=== PATIENT | female | born 1970 | race Caucasian/White ===

== ENCOUNTER → 2023-01-21 06:20 | Outpatient (CLI) | payer MEDICAID, SELFPAY ==
--- NOTE | 2023-01-21 06:21 | US_ITS ---
FINAL REPORT CLINICAL HISTORY: claudication, smoker, weakened pulses > lt DPA/BANK PRESIDENT FINDINGS: ANKLE/BRACHIAL INDICES FINDINGS: Pressure indices are as follows: RIGHT LOWER EXTREMITY: Ankle brachial pressure index: 0.88 Comments: Borderline LEFT LOWER EXTREMITY: Ankle brachial pressure index: 0.55 Comments: Moderate IMPRESSION: Moderate peripheral vascular disease of the left lower extremity. Reviewed, Interpreted and Dictated by Pola Del Cid III, MD Transcribed by Roger Simms Authenticated and [facility]
--- NOTE | 2023-01-21 06:21 | CA_ITS ---
APPROVED REPORT Exam: Pharmacologic Technologist: Kirti Alaniz, Ht: 5 ft 7 in Wt: 169 lbs BSA: 1.88 m2 HR: 59 bpm BP: 130/75 mmHg Rhythm: NSR, NS ST-T Abns Medical History Medications: Levothyroxine,,,,, Atenolol,,,,, Simvastatin,,,,, Cardiac Risk Factors: Hyperlipidemia, Smoking Stress Test Details Test: LEXISCAN HR Resting HR: 64 bpm Max Heart Rate (APMHR): 166 bpm Max HR Achieved: 97 bpm Target HR (85% APMHR): 141 bpm % of APMHR: 58 Recovery HR: 91 bpm BP Resting BP: 130/75 mmHg Max BP: 160/80 mmHg Recovery BP: 142.0/83.0 mmHg ECG Resting ECG: NSR, No ST_changes at basline Stress ECG: No change Recovery ECG: No change Clinical Exercise duration: 04:00 min Highest Stage Achieved: Exercise capacity: 1.0 METs Stress ECG Conclusion Pt switched to lexiscan due to leg pain and blunted HR response as she had received atenolol prior to the procedure Pt experinced SOA and head discomfort. No CP noted. No arrhythmias noted. No ST changes with stress. Unremarkable lexiscan stress. Myoview images reported separately. Test Summary REST . . . . . . . Sitting REST 01:34 . . 64 . 130/ 75 . . Stage 1 01:00 . . 85 . . . . Stage 2 01:00 . . 94 . . . . Stage 3 01:00 . . 96 . 158/ 83 . . Stage 4 01:00 . . 89 . 132/ 74 . Stop exercise at 04:00 RECOVERY 01:00 . . 91 . . . . RECOVERY 02:00 . . 85 . 142/ 83 . . RECOVERY 03:00 . . 86 . 150/ 75 . . RECOVERY 03:14 . . 89 . 150/ 75 . . Electronically signed by : Allie Batista, 01/21/2023 17:33:49
--- NOTE | 2023-01-21 06:21 | NM_ITS ---
APPROVED REPORT Exam: Nuclear Stress Test Indication: HYPERLIPIDEMIA, TOB USE, FM HX, C.P., SOB, SYNCOPE, FATIGUE, CLAUDICATION Patient Location: Outpatient Stress Tech: Kirti Alaniz NM Tech:Juana Ceron SARKIS RT (R)(N)(M) Ht: 5 ft 7 in Wt: 167 lbs Bra Size: B HR: 64 bpm BP: 130/75 mmHg BSA: 1.87 m2 TID: 1.22 BMI: 26.1 History: HYPERLIPIDEMIA, TOB USE, FM HX, C.P., SOB, SYNCOPE, FATIGUE, CLAUDICATION Procedure: Patient received 0.4 mg of intravenous Lexiscan, resting heart rate 64 bpm, resting blood pressure 130/75 mmHg, with Lexiscan maximum heart rate achieved was 97 bpm which is 58 % of the maximum predicted heart rate and blood pressure was 160/80 mmHg. With Lexiscan, patient denied any complaint of chest pain. Cardiac Stress and Resting SPECT Images: Cardiac Stress and Resting SPECT images were obtained using technetium 99m Myoview 30.8 mCi stress and 10.49 mCi at rest. Resting and stress imaging demonstrates a medium-sized, moderate, predominantly reversible perfusion defect in the mid to basal septal and anteroseptal LV wall, suggestive of reversible ischemia. There is a fixed perfusion defect inferiorly that is no longer visualized in prone stress imaging, suggestive of diaphragmatic attenuation. There is borderline incease in transient ischemic dilatation ratio (TID=1.22) that may be suggestive of possible balanced ischemia or multivessel disease. Gated imaging demonstrates a normal global LV systolic function. There is mild hypokinesis present in the mid to basal septal LV region. The LVEF is calculated at 68% Conclusion: Diaphragmatic attenuation is present. Medium-sized, moderate, predominantly reversible perfusion defect in the mid to basal septal and anteroseptal LV wall, suggestive of reversible ischemia. Borderline incease in transient ischemic dilatation ratio (TID=1.22) that may be suggestive of possible balanced ischemia or multivessel disease. Normal global LV systolic function with mild hypokinesis present in the mid to basal septal LV region. The LVEF is calculated at 68% Electronically signed by : Allie Batista, 01/21/2023 17:58:02
== END ==
PROVIDERS: PCP Nurse Practitioner Family; Visit Provider Nurse Practitioner
DX: R06.09 Other forms of dyspnea (principal); R07.9 Chest pain, unspecified; R00.2 Palpitations; R42 Dizziness and giddiness; R55 Syncope and collapse; I45.10 Unspecified right bundle-branch block; I73.9 Peripheral vascular disease, unspecified; F17.200 Nicotine dependence, unspecified, uncomplicated; R94.31 Abnormal electrocardiogram [ECG] [EKG]
CPT/HCPCS: 78452; 93017; 93306; 93923; A9502; J2785

== ENCOUNTER 2023-02-05 14:32 | Observation (INO) | payer MEDICAID, SELFPAY ==
[2023-02-05] VITALS (21 sets, daily range): BP systolic 96–148; BP diastolic 57–105; PULSE 54–74; RESP 16–97; TEMP 36.7–36.9; O2SAT 16–100; BMI 26.3; BMI 26.0
--- NOTE | 2023-02-05 07:03 | IR_ITS ---
APPROVED REPORT Patient Location: Outpatient PROCEDURES Selective coronary angiogram Intravascular ultrasound to the left main artery and LAD Drug-eluting stent deployment to the circumflex arteries first obtuse marginal artery Drug-eluting stent deployment to the left main artery extending into the proximal LAD Drug-eluting stent deployment to the mid LAD which was noncontiguous with the proximal LAD INDICATION High risk abnormal Myoview, Angina pectoris, Coronary artery disease, Polymorphic ventricular tachycardia Informed consent was obtained prior to the procedure. COMPLICATIONS None Estimated Blood Loss: Less than 10 mls TECHNIQUE One percent lidocaine used to anesthetize the right anterior aspect of the wrist. The right radial artery was accessed via the Seldinger technique. A 6 Portuguese sheath was placed in the right radial artery. 150 mg magnesium sulfate, 800 mcg of nitroglycerin, 1mg Lidocaine and 5000 U Heparin were given through the arterial sheath. The papa catheter was also used to perform selective coronary angiography. Upon engagement left main artery there is severe dampening which resulted in polymorphic ventricular tachycardia. Just prior to the patient being electrically cardioverted with a defibrillator she spontaneously converted back into sinus rhythm. Therapeutic heparin was administered giving a therapeutic ACT and a Choice PT extra-support wire was placed into the LAD. Intravascular ultrasound probe was advanced which demonstrated an MLA of 3.2 mm??? in the ostial proximal LAD with an MLA of 4 mm??? in the left main artery. At this point the wire was left in the LAD and an additional wire was placed in the circumflex artery where a 2.75 x 38 mm Mario frontier stent was deployed in the proximal mid to distal portion of the obtuse marginal artery and deployed at 14 kandice. Excellent angiographic results were obtained with reduction of the severe stenosis to less than 10%. Following this a 3.5 x 18 mm Mario frontier stent was deployed in the mid left main artery extending the proximal LAD and deployed at 20 kandice. A 4 mm x 12 mm balloon was then deployed in the proximal LAD extending back into the left main artery at 20 kandice. Intravascular ultrasound probe demonstrated there was plaque proximal to the left main stent and the stent was slightly undersized. A 2.75 x 18 mm Hercules frontier stent was placed in the mid LAD at 20 kandice reducing the severe stenosis to 0%. Following this a 4 mm x 8 mm Mario frontier stent was placed in the ostial segment of the left main artery deployed at 24 kandice. Excellent angiographic results were obtained with JOSELITO-3 flow down the left main artery LAD circumflex artery and first obtuse marginal artery. Intravascular ultrasound probe was reinserted which demonstrated wide patency. Intra-arterial nitroglycerin was also injected. At the end of the procedure the apparatus was removed the sheath was removed and hemostasis was achieved using TR banding patient was transferred to postop already in stable addition ANGIOGRAPHIC RESULTS The left main artery And is severe mid to distal stenosis in excess of 70% by IVUS The left anterior descending artery Had a critical ostial proximal stenosis and excessive 90% by IVUS followed by additional 40% proximal stenoses followed by a focal mid vessel 80 to 90% stenosis The circumflex artery Is a dominant vessel and has a 50 to 60% stenosis in a large first obtuse marginal artery The right coronary artery Nondominant with mild 10% luminal irregularities The INFANTE ventriculogram reveals Not performed The left ventricular end-diastolic pressure Not measured IMPRESSION Severe left main disease which extended into the ostial pr
[2023-02-05 10:31] LABS: Basophils # 0.1 K/mm3 (0-0.2); Basophils % 0.6 % (0.1-2.0); Eosinophils # 0.4 K/mm3 (0.0-0.4); Eosinophils % 2.7 % (0.1-12.0); Hematocrit 44.8 % (37.0-47.0); Hemoglobin 14.9 g/dL (12.2-16.2); Lymphocytes # 4.2 K/mm3 (0.7-4.5); Lymphocytes % 28.6 % (10-50); Mean Corpuscular HGB Conc 33.3 g/dL (31.8-35.4); Mean Corpuscular Hemoglobin 28.9 pg (27.0-31.2); Mean Corpuscular Volume 86.9 fl (81-99); Mean Platelet Volume 7.9 fl (7.4-10.4); Monocytes # 0.6 K/mm3 (0.1-1.0); Monocytes % 3.8 % (1.7-9.3); Neutrophils # 9.5 K/mm3 (1.8-7.8); Neutrophils % 64.3 % (37.0-80.0); Platelet Count 270 K/mm3 (142-424); Red Blood Count 5.15 M/mm3 (4.20-5.40); Red Cell Distribution Width 12.7 % (11.5-17.5); White Blood Count 14.7 K/mm3 (4.8-10.8)
[2023-02-05 10:37] LABS: Chloride 104 mmol/L (98-107); Potassium 4.7 mmoL/L (3.5-5.1); Sodium 139 mmol/L (136-145)
[2023-02-05 10:40] LABS: Anion Gap 15.7 mEq/L (5-15); Blood Urea Nitrogen 13 mg/dl (7-17); Calcium 9.9 mg/dl (8.4-10.2); Carbon Dioxide 24 mmol/L (22.0-30.0); Creatinine Clearance Estimated 111 mL/min (50-200); Estimated Glomerular Filt Rate 87 ml/min (>60); GFR (African American) 106 ML/MIN (>60); Glucose 85 mg/dl (74-100)
[2023-02-05 15:24] LABS: CATHL Activated Clotting Time > 400 SEC (74-125)
[2023-02-05 15:25] LABS: CATHL Activated Clotting Time 359 SEC (74-125)
[2023-02-05 15:34] LABS: Thyroid Stimulating Hormone 2.22 uIU/mL (0.465-4.68)
[2023-02-05 16:46] LABS: Coronavirus 19, PCR Not Detected (NotDetected); Influenza A, PCR Not Detected (NotDetected); Influenza B, PCR Not Detected (NotDetected)
--- NOTE | 2023-02-05 18:22 | PC.NURSE ---
pt has not had any complaints of chest pain or SOA, tracelet removed, dressing placed, remains C/D/I, ambulated to BR with SB assist, HR 54-61, SBP 126-148
--- NOTE | 2023-02-05 18:50 | EXP.HP ---
History of Present Illness *Admission Date: 02/05/23 *Reason for visit:: Vfib, s/p left heart cath *History of present illness: 52-year-old female with CAD, tobacco use history, hypertension and hyperlipidemia. She presented for an elective outpatient left heart cath today after an abnormal Myoview stress test on 01/21 identified reversible ischemic changes in the anterior wall and septum. Left heart cath performed identifying multiple critical lesions. Intervened on with placement of 4 stents today. Stents placed to the left main ostium, LAD, obtuse marginal. Tolerated procedure well but had an episode of V-fib that self converted during the heart cath. Cardiology request admission overnight for monitoring on telemetry. Medicine agrees with admission. Patient denies any chest pain just feels sensation of her stomach dropping at times and feels anxious or nervous about her health. Denies any shortness of breath. Is also been having claudication in her legs and has abnormal ABIs. Plan for lower extremity runoff in the coming weeks. At this time is chest pain-free and stable on room air. [facility] Disclaimer: The information contained in this section may have been updated after the patient was seen, as this information can be updated by other users. Medical History Abnormal ankle brachial index Abnormal result of cardiovascular function study Claudication Family History No significant family history Social History Smoking Status: Current every day smoker tobacco type: cigarettes packs per day: 1 alcohol intake: never substance use type: denies use current occupational status: employed Travel in the last 8 weeks: Inside the [place] Review of Systems Review of Systems Review of systems (narrative): 14 point review of systems performed, pertinent positives and negatives as per HPI Meds Home Medications and Allergies Home Medications Medication Instructions Recorded Confirmed Type levothyroxine 25 mcg tablet 25 mcg PO DAILY hypothyroidism 12/23/22 02/05/23 History simvastatin 5 mg tablet 5 mg PO DAILY High cholesterol 12/23/22 02/05/23 History aspirin 81 mg tablet,delayed 81 mg PO DAILY Blood thinner 02/05/23 02/05/23 History release (Adult Low Dose Aspirin) atenolol 50 mg tablet 50 mg PO DAILY High blood pressure 02/05/23 02/05/23 History ticagrelor 90 mg tablet (Brilinta) 90 mg PO Q12H #180 tabs 02/05/23 Rx New Prescriptions to Start Prescriptions: ticagrelor [Brilinta] Marcel Bhandari Allergies Allergy/AdvReac Type Severity Reaction Status Date / Time No Known Allergies Allergy Verified 01/28/23 13:59 Exam Data for Last 24 hours Vital signs and Labs for Last 24 Hours: Temp Pulse Resp BP Pulse Ox 98.3 F 54 L 18 148/75 H 98 02/05/23 15:15 02/05/23 17:15 02/05/23 17:15 02/05/23 17:15 02/05/23 17:15 Laboratory Results - last 24 hr 02/05/23 10:00: WBC 14.7 H, RBC 5.15, Hgb 14.9, Hct 44.8, MCV 86.9, MCH 28.9, MCHC 33.3, RDW 12.7, Plt Count 270, MPV 7.9, Neut % (Auto) 64.3, Lymph % (Auto) 28.6, [place] % (Auto) 3.8, Eos % (Auto) 2.7, Baso % (Auto) 0.6, Neut # (Auto) 9.5 H, Lymph # (Auto) 4.2, [place] # (Auto) 0.6, Eos # (Auto) 0.4, Baso # (Auto) 0.1 02/05/23 10:00: Sodium 139, Potassium 4.7, Chloride 104, Carbon Dioxide 24, Anion Gap 15.7 H, BUN 13, Creatinine 0.70, Estimated Creat Clear 111, Estimated GFR 87, Est GFR ( Amer) 106, Glucose 85, Calcium 9.9 02/05/23 10:00: TSH 2.22 02/05/23 13:04: Activated Clotting Time > 400 H* 02/05/23 13:34: Activated Clotting Time 359 H* 02/05/23 16:33: SARS-CoV-2 (PCR) Not detected, Influenza A Untype (PCR) Not detected, Influenza Type B (PCR) Not detected I & O for Last 24 hours: Intake & Output 02/02/23 02/03/23 02/04/23 02/05/23 23:59 23:59 23:59 23:59 Intake
[2023-02-06] VITALS: PULSE 58
--- NOTE | 2023-02-06 03:19 | PC.NURSE ---
PATIENT HAS RESTED WELL. DENIES PAIN/SOA/DISCOMFORT. SINUS ANNA MARIE ON TELEMETRY. DRSG TO RIGHT WRIST C/D/I. NPO AFTER MN ORDERED FOR F/U WITH CARDIOLOGY.
[2023-02-06 04:00] VITALS: BP 125/69; PULSE 66; PULSE 75; RESP 18; TEMP 36.6; O2SAT 96; BMI 26.9
[2023-02-06 06:44] LABS: Basophils # 0.1 K/mm3 (0-0.2); Basophils % 0.7 % (0.1-2.0); Eosinophils # 0.4 K/mm3 (0.0-0.4); Eosinophils % 2.8 % (0.1-12.0); Hemoglobin 14.3 g/dL (12.2-16.2); Lymphocytes % 29.1 % (10-50); Mean Corpuscular HGB Conc 32.5 g/dL (31.8-35.4); Mean Corpuscular Hemoglobin 29.1 pg (27.0-31.2); Mean Corpuscular Volume 89.5 fl (81-99); Mean Platelet Volume 7.9 fl (7.4-10.4); Monocytes # 0.7 K/mm3 (0.1-1.0); Monocytes % 4.7 % (1.7-9.3); Neutrophils # 8.6 K/mm3 (1.8-7.8); Neutrophils % 62.7 % (37.0-80.0); Platelet Count 242 K/mm3 (142-424); Red Blood Count 4.91 M/mm3 (4.20-5.40); White Blood Count 13.7 K/mm3 (4.8-10.8)
[2023-02-06 06:52] LABS: Chloride 105 mmol/L (98-107); Sodium 140 mmol/L (136-145)
[2023-02-06 06:53] LABS: Potassium 3.7 mmoL/L (3.5-5.1)
[2023-02-06 06:55] LABS: Alanine Aminotransferase 26 U/L (12-78); Albumin Level 4.2 g/dl (3.5-5.0); Albumin/Globulin Ratio 1.4 (1.1-1.8); Alkaline Phosphatase 95 U/L (38-126); Anion Gap 12.7 mEq/L (5-15); Aspartate Amino Transferase 32 U/L (14-36); Blood Urea Nitrogen 11 mg/dl (7-17); Calcium 9.5 mg/dl (8.4-10.2); Carbon Dioxide 26 mmol/L (22.0-30.0); Creatinine Clearance Estimated 99 mL/min (50-200); Estimated Glomerular Filt Rate 75 ml/min (>60); GFR (African American) 90 ML/MIN (>60); Glucose 86 mg/dl (74-100); Total Protein,Serum 7.2 g/dl (6.3-8.2)
--- NOTE | 2023-02-06 07:27 | HMH.PHAINT1 ---
Pharmacy Intervention Comments: Home medication list verified through external fill history from outside pharmacy.
--- NOTE | 2023-02-06 07:40 | EXP.DC.SUM ---
General Admission date:: 02/05/23 Discharge date: 02/06/23 HPI HPI HPI: 52-year-old female with CAD, tobacco use history, hypertension and hyperlipidemia. She presented for an elective outpatient left heart cath today after an abnormal Myoview stress test on 01/21 identified reversible ischemic changes in the anterior wall and septum. Left heart cath performed identifying multiple critical lesions. Intervened on with placement of 4 stents today. Stents placed to the left main ostium, LAD, obtuse marginal. Tolerated procedure well but had an episode of V-fib that self converted during the heart cath. Cardiology request admission overnight for monitoring on telemetry. Medicine agrees with admission. Patient denies any chest pain just feels sensation of her stomach dropping at times and feels anxious or nervous about her health. Denies any shortness of breath. Is also been having claudication in her legs and has abnormal ABIs. Plan for lower extremity runoff in the coming weeks. At this time is chest pain-free and stable on room air. Hospital Course Hospital Course Hospital Course: 52-year-old female who presented for outpatient left heart cath. Found to have CAD with multivessel disease. Stenting performed. Had self-limiting V-fib. Monitored overnight with no further recurrence. Stable for discharge home. Problems addressed as follows: CAD with multivessel stenting yesterday with self-limiting V-fib Hyperlipidemia - No recurrence overnight. Continue aspirin and Brilinta. Continue atenolol 50 mg daily. Switch to high intensity statin with Lipitor 40 mg daily. Stop simvastatin. Goal LDL less than 55. Encouraged aggressive risk factor modification. Patient smokes. Initiated on nicotine replacement therapy. Counseled on need to stop smoking. PAD - Plan to have patient come back in 2 to 3 weeks to perform lower extremity angiogram Transient visual loss in the last 1 to 2 weeks. Obtained carotid ultrasound. Cardiology to follow-up results with further recommendation of follow-up. Hypothyroidism - Continue levothyroxine Medically stable for discharge home. Follow-up with cardiology in 1 week. Exam Data for Last 24 hours Vital signs and Labs for Last 24 Hours: Temp Pulse Resp BP Pulse Ox 97.9 F 66 18 125/69 96 02/06/23 04:00 02/06/23 04:00 02/06/23 04:00 02/06/23 04:00 02/06/23 04:00 Laboratory Results - last 24 hr 02/05/23 10:00: WBC 14.7 H, RBC 5.15, Hgb 14.9, Hct 44.8, MCV 86.9, MCH 28.9, MCHC 33.3, RDW 12.7, Plt Count 270, MPV 7.9, Neut % (Auto) 64.3, Lymph % (Auto) 28.6, [place] % (Auto) 3.8, Eos % (Auto) 2.7, Baso % (Auto) 0.6, Neut # (Auto) 9.5 H, Lymph # (Auto) 4.2, [place] # (Auto) 0.6, Eos # (Auto) 0.4, Baso # (Auto) 0.1 02/05/23 10:00: Sodium 139, Potassium 4.7, Chloride 104, Carbon Dioxide 24, Anion Gap 15.7 H, BUN 13, Creatinine 0.70, Estimated Creat Clear 111, Estimated GFR 87, Est GFR ( Amer) 106, Glucose 85, Calcium 9.9 02/05/23 10:00: TSH 2.22 02/05/23 13:04: Activated Clotting Time > 400 H* 02/05/23 13:34: Activated Clotting Time 359 H* 02/05/23 16:33: SARS-CoV-2 (PCR) Not detected, Influenza A Untype (PCR) Not detected, Influenza Type B (PCR) Not detected 02/06/23 05:25: WBC 13.7 H, RBC 4.91, Hgb 14.3, Hct 44.0, MCV 89.5, MCH 29.1, MCHC 32.5, RDW 13.0, Plt Count 242, MPV 7.9, Neut % (Auto) 62.7, Lymph % (Auto) 29.1, [place] % (Auto) 4.7, Eos % (Auto) 2.8, Baso % (Auto) 0.7, Neut # (Auto) 8.6 H, Lymph # (Auto) 4.0, [place] # (Auto) 0.7, Eos # (Auto) 0.4, Baso # (Auto) 0.1 02/06/23 05:25: Sodium 140, Potassium 3.7 D, Chloride 105, Carbon Dioxide 26, Anion Gap 12.7, BUN 11, Creatinine 0.80, Estimated Creat Clear 99, Estimated GFR 75, Est GFR ( Amer) 90, Glucose 86, Calcium 9.5, Magnesium 2.0, Total Bilirubin 1.0, AST 32, ALT 26, Alkaline Phosphatase 95, Total Protein 7.2, Albumin 4.2, Globulin 3.0, Albumin/Globulin Ratio 1.4 02/06/23 05:25: Troponin I 0.10 H I & O for Last 24 hours: Int
[2023-02-06 08:00] VITALS: BP 122/71; PULSE 70; PULSE 74; RESP 18; TEMP 36.9; O2SAT 98
--- NOTE | 2023-02-06 08:54 | CA_ITS ---
FINAL REPORT CLINICAL HISTORY: recent transient loss of vision, PAD, CAD, recent stents. COMPARISON: None FINDINGS: RIGHT CAROTID: CCA PSV 139 cm/sec ICA PSV 70 cm/sec ICA/CCA PSV ratio 1.16 Comments: Mild plaque disease is noted. LEFTCAROTID: CCA PSV 93 cm/sec ICA PSV 82 cm/sec ICA/CCA PSV ratio 0.89 Comments: Mild plaque disease is noted. Antegrade flow is seen within the vertebral arteries. IMPRESSION: Less than 50% stenosis bilaterally. Reviewed, Interpreted and Dictated by Terrell Ramirez MD Transcribed by Camelia Valle Authenticated and [facility]
--- NOTE | 2023-02-06 08:55 | EXP.CARD.PN ---
Subjective Subjective Date: 02/06/23 Time: 08:56 Principal diagnosis: CAD, V. fib during cath/stenting, PAD Interval history: 52-year-old white female admitted for observation overnight due to brief episode of ventricular fibrillation during cardiac cath and stenting procedure yesterday. She received 4 stents total to the left main, LAD and circumflex/OM. Telemetry overnight shows no recurrent arrhythmias including VT or VF. Talking with the patient regarding vascular disease she does relate an episode of transient loss of vision 1 to 2 [address] ago [address] driving. No appreciable bruits on exam but will obtain carotid ultrasound prior to leaving today Exam Data for Last 24 hours Vital signs and Labs for Last 24 Hours: Temp Pulse Resp BP Pulse Ox 97.9 F 66 18 125/69 96 02/06/23 04:00 02/06/23 04:00 02/06/23 04:00 02/06/23 04:00 02/06/23 04:00 Laboratory Results - last 24 hr 02/05/23 10:00: WBC 14.7 H, RBC 5.15, Hgb 14.9, Hct 44.8, MCV 86.9, MCH 28.9, MCHC 33.3, RDW 12.7, Plt Count 270, MPV 7.9, Neut % (Auto) 64.3, Lymph % (Auto) 28.6, [place] % (Auto) 3.8, Eos % (Auto) 2.7, Baso % (Auto) 0.6, Neut # (Auto) 9.5 H, Lymph # (Auto) 4.2, [place] # (Auto) 0.6, Eos # (Auto) 0.4, Baso # (Auto) 0.1 02/05/23 10:00: Sodium 139, Potassium 4.7, Chloride 104, Carbon Dioxide 24, Anion Gap 15.7 H, BUN 13, Creatinine 0.70, Estimated Creat Clear 111, Estimated GFR 87, Est GFR ( Amer) 106, Glucose 85, Calcium 9.9 02/05/23 10:00: TSH 2.22 02/05/23 13:04: Activated Clotting Time > 400 H* 02/05/23 13:34: Activated Clotting Time 359 H* 02/05/23 16:33: SARS-CoV-2 (PCR) Not detected, Influenza A Untype (PCR) Not detected, Influenza Type B (PCR) Not detected 02/06/23 05:25: WBC 13.7 H, RBC 4.91, Hgb 14.3, Hct 44.0, MCV 89.5, MCH 29.1, MCHC 32.5, RDW 13.0, Plt Count 242, MPV 7.9, Neut % (Auto) 62.7, Lymph % (Auto) 29.1, [place] % (Auto) 4.7, Eos % (Auto) 2.8, Baso % (Auto) 0.7, Neut # (Auto) 8.6 H, Lymph # (Auto) 4.0, [place] # (Auto) 0.7, Eos # (Auto) 0.4, Baso # (Auto) 0.1 02/06/23 05:25: Sodium 140, Potassium 3.7 D, Chloride 105, Carbon Dioxide 26, Anion Gap 12.7, BUN 11, Creatinine 0.80, Estimated Creat Clear 99, Estimated GFR 75, Est GFR ( Amer) 90, Glucose 86, Calcium 9.5, Magnesium 2.0, Total Bilirubin 1.0, AST 32, ALT 26, Alkaline Phosphatase 95, Total Protein 7.2, Albumin 4.2, Globulin 3.0, Albumin/Globulin Ratio 1.4 02/06/23 05:25: Troponin I 0.10 H I & O for Last 24 hours: Intake & Output 02/03/23 02/04/23 02/05/23 02/06/23 11:59 11:59 11:59 11:59 Intake Total 600 / 600 Output Total Balance 599 / 599 Weight 168 lb 171 lb 7 oz Constitutional Constitutional: no acute distress *Routine Neck Exam Neck: Absent JVD or carotid bruit *Routine Respiratory Exam Respiratory: Present decreased breath sounds and wheezes *Routine Cardiovascular Exam Cardiovascular: Present RRR *Routine Extremities Exam Extremities: Absent edema *Routine Neurological Exam Neurological: Present alert, oriented X3 and CN II-XII intact Progress Note: A&P Assessment and plan (1) CAD (coronary artery disease): Status: Acute (2) S/P coronary artery stent placement: Status: Acute (3) Abnormal ankle brachial index: Status: Acute (4) Tobacco dependence syndrome: Status: Chronic (5) Hypothyroid: Status: Chronic Assessment and Plan Assessment and Plan for All Diagnoses:: 1. CAD with multivessel stenting yesterday with self-limiting V-fib. No recurrence overnight Continue aspirin and Brilinta Continue atenolol 50 mg daily 2. PAD Plan to have patient come back in 2 to 3 weeks to perform lower extremity angiogram 3. Tobacco use Continue nicotine replacement 4. Hyperlipidemia Switch simvastatin to atorvastatin 40 mg daily 5. Transient visual loss in the last 1 to 2 weeks Plan carotid ultrasound today 6. Hypothyroidism Continue levothyroxine Stable from a cardiac standpoint for discharge home today.
--- NOTE | 2023-02-06 09:43 | PC.NURSE ---
COURTESY TECH NOTE; ROUNDED ON PT 0800, PT DENIED NEED FOR RESTROOM, NEED TO REPOSITION. BREAKFAST TRAY ORDERED AT PT REQUEST WITH NURSE APPROVAL. CALL LIGHT WITHIN REACH, NO FURTHER REQUESTS AT THIS TIME NAIN BECK
[2023-02-06 11:55] VITALS: BP 112/62; PULSE 58; RESP 18; TEMP 36.7; O2SAT 97
[2023-02-06 12:04] LABS: Chol/HDL Ratio 5.7 (1-3.5); Cholesterol 195 mg/dl (140-200); HDL Cholesterol 34 mg/dl (40-60); Triglycerides 220 mg/dl (30-150); VLDL Cholesterol 44 mg/dL (0-40)
[2023-02-06 12:15] LABS: Direct LDL Cholesterol 103.34 mg/dL (100-129)
[2023-02-06 12:22] VITALS: PULSE 70
--- NOTE | 2023-02-06 14:45 | HMH.PHAINT1 ---
Pharmacy Intervention Comments: Discharge medication counseling completed. Patient was starting the following meds: -atorvastatin: 40 mg at bedtime, told of possible side effect of muscle aches and to let her provider know if this occurs. Said it could likely be resolved if they switched to a different statin or lower the dose. -Brilinta: 90 mg twice daily. Told patient to watch for signs of bleeding (bruising easily, blood in stool, etc.) and let her provider know if this occurs -nicotine patch: told patient to remove yesterday's patch each morning and apply a new one. Told her to rotate sites of application to avoid skin irritation. Said possible side effects included trouble sleeping and/or nightmares and taking the patch off before bed might prevent this Patient wanted to know what to do about her other cholesterol medication she took and I said she was to stop taking her simvastatin since she was to begin the atorvastatin instead. Patient verbalized understanding and had no further questions.
--- NOTE | 2023-02-06 15:46 | P.CONPHA_ITS ---
PHA Ultrasound Manager Discharge Med Textile Technical Officer: Lety Grullon has received discharge medication counseling on the following medications: ASPIRIN 81 MG DAILY ATENOLOL 50 MG DAILY ATORVASTATIN 40 MG HS BRILINTA 90 MG BID MD INDICATED NO VERONICA/ARB AT THIS TIME.
--- NOTE | 2023-02-07 14:36 | CARE MANAGER ---
Called and spoke with patient in regards to recent discharge. Patient states that she is doing well. No complaints or concerns at time of call.
== END 2023-02-06 14:57 | disposition home or self-care (01) ==
LOC: 2ND 14:32
PROVIDERS: Internal Medicine; Physician Assistant; Admitting Provider Internal Medicine Adolescent Medicine; PCP Nurse Practitioner Family; Visit Provider Internal Medicine Adolescent Medicine
DX: I45.10 Unspecified right bundle-branch block (principal); F17.210 Nicotine dependence, cigarettes, uncomplicated; R07.9 Chest pain, unspecified; R94.31 Abnormal electrocardiogram [ECG] [EKG]; I25.118 Atherosclerotic heart disease of native coronary artery with other forms of angina pectoris; Z95.5 Presence of coronary angioplasty implant and graft; E03.9 Hypothyroidism, unspecified; Z79.899 Other long term (current) drug therapy; I70.213 Atherosclerosis of native arteries of extremities with intermittent claudication, bilateral legs; I47.20 Ventricular tachycardia, unspecified; I10 Essential (primary) hypertension
CPT/HCPCS: 80048; 80053; 80061; 83735; 84443; 84484; 85025; 85347; 87636; 92928; 92929; 92978; 93454; 93880; 99152; 99153; C1725; C1769; C1874; C1876; C9600; C9601; C9803; G0378; J1644; Q9967; U0003; U0005

== ENCOUNTER → 2023-02-17 13:38 | Outpatient (CLI) | payer MEDICAID, SELFPAY ==
[2023-02-17 14:56] LABS: Basophils # 0.1 K/mm3 (0-0.2); Basophils % 0.7 % (0.1-2.0); Eosinophils # 0.4 K/mm3 (0.0-0.4); Eosinophils % 3.7 % (0.1-12.0); Hematocrit 41.8 % (37.0-47.0); Hemoglobin 13.8 g/dL (12.2-16.2); Lymphocytes # 3.8 K/mm3 (0.7-4.5); Lymphocytes % 31.3 % (10-50); Mean Corpuscular Hemoglobin 28.5 pg (27.0-31.2); Mean Corpuscular Volume 86.3 fl (81-99); Mean Platelet Volume 8.2 fl (7.4-10.4); Monocytes # 0.5 K/mm3 (0.1-1.0); Monocytes % 3.8 % (1.7-9.3); Neutrophils # 7.3 K/mm3 (1.8-7.8); Neutrophils % 60.5 % (37.0-80.0); Platelet Count 328 K/mm3 (142-424); Red Blood Count 4.84 M/mm3 (4.20-5.40); Red Cell Distribution Width 12.7 % (11.5-17.5); White Blood Count 12.1 K/mm3 (4.8-10.8)
[2023-02-17 15:28] LABS: Chloride 101 mmol/L (98-107); Potassium 4.2 mmoL/L (3.5-5.1); Sodium 138 mmol/L (136-145)
[2023-02-17 15:31] LABS: Blood Urea Nitrogen 11 mg/dl (7-17); Estimated Glomerular Filt Rate 87 ml/min (>60); GFR (African American) 106 ML/MIN (>60)
[2023-02-17 15:32] LABS: Anion Gap 16.2 mEq/L (5-15); Calcium 9.5 mg/dl (8.4-10.2); Carbon Dioxide 25 mmol/L (22.0-30.0); Glucose 88 mg/dl (74-100)
== END ==
PROVIDERS: Internal Medicine; PCP Nurse Practitioner Family; Visit Provider Student in an Organized Health Care Education/Training Program
DX: I25.10 Atherosclerotic heart disease of native coronary artery without angina pectoris (principal); Z95.5 Presence of coronary angioplasty implant and graft
CPT/HCPCS: 36415; 80048; 85025

== ENCOUNTER 2023-03-05 12:30 | Observation (INO) | payer MEDICAID, SELFPAY ==
[2023-03-05] VITALS (37 sets, daily range): BP systolic 83–138; BP diastolic 37–88; PULSE 47–71; RESP 17–20; TEMP 36.6; O2SAT 95–100; BMI 25.8; BMI 25.0
--- NOTE | 2023-03-05 07:10 | IR_ITS ---
APPROVED REPORT Patient Location: Outpatient PROCEDURES Right femoral arterial access Right retrograde femoral angiogram Catheter placed in the abdominal aorta Bilateral iliofemoral angiography Left femoral arterial access Left retrograde femoral angiogram Bare-metal balloon mounted stent deployment to the proximal left common iliac artery Bare-metal balloon mounted stent deployment to the proximal right common iliac artery INDICATION Bilateral common iliac artery stenoses, Edil claudication class III, Abnormal JANNET left leg 0.55 right leg 0.88, Informed consent was obtained prior to the procedure. COMPLICATIONS None Estimated Blood Loss: Less than 10 mls TECHNIQUE 1% lidocaine used anesthetize the right groin the right femoral artery was accessed via the Salinger technique and a 5 British sheath was placed in the right femoral artery. Retrograde angiography was performed. Following this the catheter was advanced over a wire into the abdominal aorta where abdominal aortography was performed. Following this 1% lidocaine was used to anesthetize the left groin and left femoral artery was accessed via the Salinger technique. A 6 British 23 cm sheath was then advanced into the left femoral artery into the left external iliac artery. Therapeutic heparin was administered giving a therapeutic ACT. Over an advantage wire an 8 mm x 27 mm EV 3 stent was deployed at 12 kandice reducing the critical 90% eccentric calcified stenosis to 0%. Following this the sheath was advanced into the distal abdominal aorta and recorded hemodynamic pullback was performed which demonstrated less than 10 mm gradient from the abdominal aorta into the left common femoral artery. The 5 British sheath was exchanged for the 6 British sheath in the right groin and an 8 mm x 57 mm EV 3 stent was deployed at 12 kandice reducing the severe right common iliac artery stenosis to 0%. No demonstrable hemodynamic gradient was identified on pullback from the aorta to the right external iliac artery. At the end of the procedure the apparatus was removed the patient was transferred to the postop putting in stable addition for sheath removal ANGIOGRAPHIC RESULTS Distal abdominal aorta is moderately atheromatous with stents calcified distal plaque Right common iliac artery has proximal 60% stenoses with a distal 70% stenosis. The right internal iliac artery is patent the right external iliac artery is patent but small caliber and extends into a small caliber right common femoral artery. The right profunda femoris artery is patent in the proximal segment as is the proximal right superficial femoral artery Left common iliac artery has an eccentric calcified 80 to 90% plaque. The left internal iliac artery has a long concentric 90% stenosis and fills via thoracolumbar collaterals mostly in a collateral manner with mild antegrade flow into the left common iliac artery. The left external iliac artery extending to the left common femoral artery is without overt atheromatous plaque however the entire caliber of the vessel is small. The left profunda femoris artery and proximal left superficial femoral is widely patent IMPRESSION Moderately atheromatous distal abdominal aorta as described above Severe bilateral common iliac artery stenoses Successful stenting of the left common iliac artery severe disease reduced to 0% with 1 balloon mounted bare-metal stent Successful stenting of the right common iliac artery severe disease reduced to 0% with 1 balloon mounted bare-metal stent Hypoplastic external iliac arteries and bilateral common femoral arteries as described above PLAN 1. Continue medical management for probably vascular disease 2. Dual antiplatelet therapy for ischemic heart disease 3. LDL less than 55 to be achiev
[2023-03-05 09:39] LABS: Basophils # 0.1 K/mm3 (0-0.2); Basophils % 0.7 % (0.1-2.0); Eosinophils # 0.4 K/mm3 (0.0-0.4); Eosinophils % 3.3 % (0.1-12.0); Hematocrit 44.4 % (37.0-47.0); Hemoglobin 14.5 g/dL (12.2-16.2); Lymphocytes # 3.5 K/mm3 (0.7-4.5); Lymphocytes % 28.6 % (10-50); Mean Corpuscular HGB Conc 32.6 g/dL (31.8-35.4); Mean Corpuscular Hemoglobin 28.6 pg (27.0-31.2); Mean Corpuscular Volume 87.7 fl (81-99); Mean Platelet Volume 7.7 fl (7.4-10.4); Monocytes # 0.6 K/mm3 (0.1-1.0); Monocytes % 4.6 % (1.7-9.3); Neutrophils # 7.6 K/mm3 (1.8-7.8); Neutrophils % 62.9 % (37.0-80.0); Platelet Count 314 K/mm3 (142-424); Red Blood Count 5.07 M/mm3 (4.20-5.40); Red Cell Distribution Width 12.9 % (11.5-17.5); White Blood Count 12.1 K/mm3 (4.8-10.8)
[2023-03-05 09:48] LABS: Anion Gap 16.4 mEq/L (5-15); Blood Urea Nitrogen 13 mg/dl (7-17); Calcium 9.9 mg/dl (8.4-10.2); Carbon Dioxide 25 mmol/L (22.0-30.0); Chloride 101 mmol/L (98-107); Creatinine Clearance Estimated 95 mL/min (50-200); Estimated Glomerular Filt Rate 75 ml/min (>60); GFR (African American) 90 ML/MIN (>60); Glucose 103 mg/dl (74-100); Potassium 4.4 mmoL/L (3.5-5.1); Sodium 138 mmol/L (136-145)
[2023-03-05 12:16] LABS: CATHL Activated Clotting Time 367 SEC (74-125)
--- NOTE | 2023-03-05 12:51 | EXP.HP ---
History of Present Illness *Admission Date: 03/05/23 *Reason for visit:: PAD, s/p iliac stenting *History of present illness: 52-year-old female with CAD, tobacco use history, hypertension and hyperlipidemia. She presented for an elective outpatient lower extremity run off and angioplasty after abnormal ABIs. Bilateral stenting of iliacs performed. Due to need to monitor overnight for bleeding and prolonged supine requirement, Cardiology request admission overnight for monitoring on telemetry. Medicine agrees with admission. Patient denies any chest pain, leg pain. Just back pian at this time. Denies any shortness of breath. At this time is chest pain-free and stable on room air. [facility] Disclaimer: The information contained in this section may have been updated after the patient was seen, as this information can be updated by other users. Medical History Abnormal ankle brachial index Abnormal result of cardiovascular function study Claudication Hyperlipidemia Hypertension Hypothyroidism Insomnia Panic attack Transient visual loss of right eye Ventricular fibrillation Surgical History History of History of cholecystectomy History of D&C S/P coronary artery stent placement Family History No significant family history Social History Smoking Status: Current every day smoker tobacco type: cigarettes packs per day: 1 years smoked: 40 second hand exposure: No alcohol intake: former year quit: 2020 counseling given: No substance use type: denies use counseling given: No current occupational status: unemployed Travel in the last 8 weeks: Inside the [place] adopted: No caregiver/support person: No foster care: No household members: significant other housing: house lives independently: Yes marital status: number of children: 1 number of grandchildren: 2 education level: other details: she went to the 9th grade; she states that she wouldn't go to school; GED+ service: No Hx Recent Travel: No sexually active: No caffeine: Yes physical activity: none kevin/episcopalian: None special kevin needs: No working smoke detector in home: Yes fire extinguisher in home: Yes carbon monox detector in home: No firearms in home: No do you feel safe at home: Yes victim of physical abuse: No victim of emotional abuse: No victim of sexual abuse: No would you like helpful sources: No Meds Home Medications and Allergies Home Medications Medication Instructions Recorded Confirmed Type levothyroxine 25 mcg tablet 25 mcg PO DAILY Thyroid 12/23/22 03/05/23 History aspirin 81 mg tablet,delayed 81 mg PO DAILY Heart health 02/05/23 03/05/23 History release (Adult Low Dose Aspirin) atenolol 50 mg tablet 50 mg PO DAILY Blood Pressure 03/05/23 03/05/23 History atorvastatin 40 mg tablet 40 mg PO HS Cholesterol 03/05/23 03/05/23 History nicotine 21 mg/24 hr daily 21 mg transdermal DAILY Tobacco 03/05/23 03/05/23 History transdermal patch Cessation sertraline 50 mg tablet (Zoloft) 50 mg PO DAILY mood 03/05/23 03/05/23 History ticagrelor 90 mg tablet (Brilinta) 90 mg PO BID AntiPlatelet/Coronary 03/05/23 03/05/23 History Artery Stent New Prescriptions to Start Prescriptions: Allergies Allergy/AdvReac Type Severity Reaction Status Date / Time No Known Allergies Allergy Verified 03/05/23 09:35 Exam Data for Last 24 hours Vital signs and Labs for Last 24 Hours: Pulse Resp BP Pulse Ox 49 L 18 98/53 L 97 03/05/23 12:47 03/05/23 12:47 03/05/23 12:47 03/05/23 12:47 Laboratory Results - last 24 hr 03/05/23 09:20: WBC 12.1 H, RBC 5.07, Hgb 14.5, Hct 44.4, MCV 87.7, MCH 28.6, MCHC 32.6, RDW 12.9, Plt Count 314, M
--- NOTE | 2023-03-05 12:57 | HMH.PHAINT1 ---
Pharmacy Intervention Comments: Patient's home medications verified with external pharmacy. -Buddy Medellin, Pharm Student
--- NOTE | 2023-03-05 13:58 | PC.NURSE ---
arrived by jeffyer from clinical laboratory aide
[2023-03-05 14:37] LABS: Coronavirus 19, PCR Not Detected (NotDetected); Influenza A, PCR Not Detected (NotDetected); Influenza B, PCR Not Detected (NotDetected)
--- NOTE | 2023-03-05 19:28 | PC.NURSE ---
Patient sitting up in bed, tolerating good. Minimal bleeding noted on dressing on R, will continue to monitor. RN outlined area to watch for active bleeding. L side clean dry and intact
--- NOTE | 2023-03-05 21:47 | PC.NURSE ---
At 1945 upon re assess of R cath site, RN noted that the drainage had moved outside the outline previously placed by RN. RN alerted Charge nurse and Charge came in assessed pt as well. It was decided that RN would hold manual firm pressure to the site for 10min then a sand bag was placed for 30min. After said time had passed a new outline was placed. RN has checked again 30min sand bag came off and the drainage has remained inside the new outline.
[2023-03-06] VITALS: BP 112/58; PULSE 50; PULSE 64; RESP 18; TEMP 36.4; O2SAT 99
--- NOTE | 2023-03-06 02:04 | PC.NURSE ---
R groin site drainage still within the borders drawn by RN previously
[2023-03-06 04:00] VITALS: BP 116/74; PULSE 59; RESP 18; TEMP 36.6; O2SAT 97; BMI 26.6
[2023-03-06 05:01] VITALS: PULSE 60
--- NOTE | 2023-03-06 05:10 | PC.NURSE ---
Patient R groin site drainage has remained within the previous borders. No other bleeding noted. there is minimal bruising around dressing site. Soft to the touch. Patient has complained of back pain when laying flat. States her back feels better when she is sitting up,and see MAR. Patient has ambulated to the bedside 2x with no complication. No other complaints were stated by the patient.
[2023-03-06 06:17] LABS: Basophils # 0.1 K/mm3 (0-0.2); Basophils % 0.6 % (0.1-2.0); Eosinophils % 3.4 % (0.1-12.0); Monocytes # 0.6 K/mm3 (0.1-1.0)
[2023-03-06 06:26] LABS: Eosinophils # 0.3 K/mm3 (0.0-0.4); Lymphocytes # 1.5 K/mm3 (0.7-4.5); Lymphocytes % 15.3 % (10-50); Mean Corpuscular HGB Conc 32.6 g/dL (31.8-35.4); Mean Corpuscular Hemoglobin 28.4 pg (27.0-31.2); Mean Corpuscular Volume 87.3 fl (81-99); Mean Platelet Volume 7.9 fl (7.4-10.4); Monocytes % 5.9 % (1.7-9.3); Neutrophils # 7.5 K/mm3 (1.8-7.8); Neutrophils % 74.9 % (37.0-80.0); Platelet Count 268 K/mm3 (142-424); Red Blood Count 4.47 M/mm3 (4.20-5.40)
[2023-03-06 06:27] LABS: Alanine Aminotransferase 40 U/L (12-78); Albumin/Globulin Ratio 1.5 (1.1-1.8); Alkaline Phosphatase 121 U/L (38-126); Anion Gap 8.8 mEq/L (5-15); Aspartate Amino Transferase 51 U/L (14-36); Bilirubin,Total 1.2 mg/dl (0.2-1.3); Blood Urea Nitrogen 14 mg/dl (7-17); Calcium 8.7 mg/dl (8.4-10.2); Carbon Dioxide 26 mmol/L (22.0-30.0); Chloride 103 mmol/L (98-107); Creatinine Clearance Estimated 111 mL/min (50-200); Estimated Glomerular Filt Rate 87 ml/min (>60); GFR (African American) 106 ML/MIN (>60); Globulin 2.7 g/dL (1.3-3.2); Glucose 99 mg/dl (74-100); Magnesium 1.8 mg/dl (1.6-2.3); Potassium 3.8 mmoL/L (3.5-5.1); Sodium 134 mmol/L (136-145); Total Protein,Serum 6.7 g/dl (6.3-8.2)
[2023-03-06 06:28] LABS: Hemoglobin 12.7 g/dL (12.2-16.2)
[2023-03-06 07:58] VITALS: BP 110/53; PULSE 57; RESP 18; TEMP 36.5; O2SAT 97
[2023-03-06 08:00] VITALS: PULSE 58
--- NOTE | 2023-03-06 09:46 | EXP.CARD.PN ---
Subjective Subjective Date: 03/06/23 Time: 09:47 Principal diagnosis: PAD s/p stenting Interval history: This is a 52-year-old white female who presented to the hospital for an outpatient runoff. The patient did have stenting to the bilateral common iliac arteries. This morning she denies any leg pain. She states that she is having a little soreness at her bilateral groin sites but other than that there is no significant pain or hematoma noted. She denies any chest pain or pressure. She denies any shortness of breath or edema. She denies any fever, chills, nausea, vomiting, diarrhea, PND or orthopnea. The patient does have some blood-tinged drainage noted to the right groin insertion site. But this does appear to be old dried blood and has not worsened overnight. The left groin site is stable. The patient is ready for discharge home. Exam Data for Last 24 hours Vital signs and Labs for Last 24 Hours: Temp Pulse Resp BP Pulse Ox 97.7 F 58 L 18 110/53 L 97 03/06/23 07:58 03/06/23 08:00 03/06/23 07:58 03/06/23 07:58 03/06/23 07:58 Laboratory Results - last 24 hr 03/05/23 09:20: Sodium 138, Potassium 4.4, Chloride 101, Carbon Dioxide 25, Anion Gap 16.4 H, BUN 13, Creatinine 0.80, Estimated Creat Clear 95, Estimated GFR 75, Est GFR ( Amer) 90, Glucose 103 H, Calcium 9.9 03/05/23 11:39: Activated Clotting Time 367 H* 03/05/23 14:20: SARS-CoV-2 (PCR) Not detected, Influenza A Untype (PCR) Not detected, Influenza Type B (PCR) Not detected 03/06/23 05:38: WBC 10.0, RBC 4.47, Hgb 12.7 D, Hct 39.0, MCV 87.3, MCH 28.4, MCHC 32.6, RDW 13.0, Plt Count 268, MPV 7.9, Neut % (Auto) 74.9, Lymph % (Auto) 15.3, [place] % (Auto) 5.9, Eos % (Auto) 3.4, Baso % (Auto) 0.6, Neut # (Auto) 7.5, Lymph # (Auto) 1.5, [place] # (Auto) 0.6, Eos # (Auto) 0.3, Baso # (Auto) 0.1, Sodium 134 L, Potassium 3.8, Chloride 103, Carbon Dioxide 26, Anion Gap 8.8, BUN 14, Creatinine 0.70, Estimated Creat Clear 111, Estimated GFR 87, Est GFR ( Amer) 106, Glucose 99, Calcium 8.7, Magnesium 1.8, Total Bilirubin 1.2, AST 51 H, ALT 40, Alkaline Phosphatase 121, Total Protein 6.7, Albumin 4.0, Globulin 2.7, Albumin/Globulin Ratio 1.5 I & O for Last 24 hours: Intake & Output 03/03/23 03/04/23 03/05/23 03/06/23 23:59 23:59 23:59 23:59 Intake Total 240 / 240 240 / 240 Output Total 300 / 600 400 / 400 Balance -60 / -360 -160 / -160 Weight 160 lb 3 oz 169 lb 6 oz Constitutional Constitutional: no acute distress and average body habitus *Routine HEENT Exam Head: Present normocephalic and atraumatic ENT: Present mucous membranes moist *Routine Neck Exam Neck: Present supple, full ROM and normal carotid upstroke; Absent JVD, carotid bruit or lymphadenopathy *Routine Respiratory Exam Respiratory: Present CTA bilaterally, normal respiratory effort, able to speak in complete sentences and symmetric chest movement *Routine Cardiovascular Exam Cardiovascular: Present RRR, Normal S1 and Normal S2; Absent murmur or gallop *Routine Abdominal Exam Abdominal: Present soft and normoactive bowel sounds; Absent tenderness, distended or organomegaly *Routine Extremities Exam Extremities: Present full ROM, pulses intact and normal capillary refill; Absent cyanosis, clubbing or edema Comments: Bilateral groin tenderness to palpation. *Routine Skin Exam Skin: Present intact and warm; Absent erythema *Routine Neurological Exam Neurological: Present alert, oriented X3 and CN II-XII intact; Absent sensory deficit or motor deficit Routine Psychiatric Exam Psychiatric: Present normal affect Progress Note: A&P Assessment and plan (1) Iliac artery stenosis, bilateral: Status: Acute (2) Peripheral arterial disease: Status: Acute (3) CAD (coronary artery disease): Status: Acute (4) Tobacco dependence syndrome: Status: Chronic (5) Hyperlipidemia: Status: Acute (6) Hypertension: Status: Acute (7) Hypothyroid: Status: Chron
--- NOTE | 2023-03-06 10:27 | EXP.DC.SUM ---
General Admission date:: 03/05/23 Discharge date: 03/06/23 HPI HPI HPI: 52-year-old female with CAD, tobacco use history, hypertension and hyperlipidemia. She presented for an elective outpatient lower extremity run off and angioplasty after abnormal ABIs. Bilateral stenting of iliacs performed. Due to need to monitor overnight for bleeding and prolonged supine requirement, Cardiology request admission overnight for monitoring on telemetry. Medicine agrees with admission. Patient denies any chest pain, leg pain. Just back pian at this time. Denies any shortness of breath. At this time is chest pain-free and stable on room air. Hospital Course Hospital Course Hospital Course: 52-year-old female with history of CAD and PAD. Presented for lower extremity runoff. Found to have bilateral stenosis of iliac arteries. Stenting performed. Stable overnight with minimal bleeding at right insertion site. Stable for discharge home. Problems addressed as follows: CAD/PAD Status post bilateral iliac stent placement Hyperlipidemia -Cardiology consulted during admission. Overall did well throughout the evening. Minor bleeding at right insertion site. Stable on day of discharge. Continue patient's Brilinta 90 mg twice daily and aspirin 81 mg daily. Continue atenolol 50 mg daily. Continue statin therapy, high intensity Lipitor 40 mg daily, goal LDL less than 55. Hypothyroidism: continue home levothyroxine 25 mcg Tobacco use disorder: Patient actively trying to stop smoking. Continue nicotine patches. Commended on progress. Medically stable for discharge home. Follow-up with cardiology in 1 week. Exam Data for Last 24 hours Vital signs and Labs for Last 24 Hours: Temp Pulse Resp BP Pulse Ox 97.7 F 58 L 18 110/53 L 97 03/06/23 07:58 03/06/23 08:00 03/06/23 07:58 03/06/23 07:58 03/06/23 07:58 Laboratory Results - last 24 hr 03/05/23 11:39: Activated Clotting Time 367 H* 03/05/23 14:20: SARS-CoV-2 (PCR) Not detected, Influenza A Untype (PCR) Not detected, Influenza Type B (PCR) Not detected 03/06/23 05:38: WBC 10.0, RBC 4.47, Hgb 12.7 D, Hct 39.0, MCV 87.3, MCH 28.4, MCHC 32.6, RDW 13.0, Plt Count 268, MPV 7.9, Neut % (Auto) 74.9, Lymph % (Auto) 15.3, [place] % (Auto) 5.9, Eos % (Auto) 3.4, Baso % (Auto) 0.6, Neut # (Auto) 7.5, Lymph # (Auto) 1.5, [place] # (Auto) 0.6, Eos # (Auto) 0.3, Baso # (Auto) 0.1, Sodium 134 L, Potassium 3.8, Chloride 103, Carbon Dioxide 26, Anion Gap 8.8, BUN 14, Creatinine 0.70, Estimated Creat Clear 111, Estimated GFR 87, Est GFR ( Amer) 106, Glucose 99, Calcium 8.7, Magnesium 1.8, Total Bilirubin 1.2, AST 51 H, ALT 40, Alkaline Phosphatase 121, Total Protein 6.7, Albumin 4.0, Globulin 2.7, Albumin/Globulin Ratio 1.5 I & O for Last 24 hours: Intake & Output 03/03/23 03/04/23 03/05/23 03/06/23 23:59 23:59 23:59 23:59 Intake Total 240 / 240 240 / 240 Output Total 300 / 600 400 / 400 Balance -60 / -360 -160 / -160 Weight 72.66 kg 76.827 kg Constitutional Constitutional: no acute distress and average body habitus *Routine HEENT Exam Head: Present normocephalic Eye: Present EOMI and PERRL ENT: Present mucous membranes moist *Routine Neck Exam Neck: Present supple; Absent lymphadenopathy *Routine Respiratory Exam Respiratory: Present CTA bilaterally *Routine Cardiovascular Exam Cardiovascular: Present RRR *Routine Abdominal Exam Abdominal: Present soft and normoactive bowel sounds; Absent tenderness *Routine Extremities Exam Extremities: Absent cyanosis, clubbing or edema Comments: Right femoral insertion site with small hematoma, left site clean dry and intact. *Routine Skin Exam Skin: Present warm; Absent rash *Routine Neurological Exam Neurological: Present alert, oriented X3 and moving all extremities; Absent altered mental status Results Data Completed and Pending Labs on day of discharge: Labs from last 24 hours 03/06/23 03/05/23 03/05/23 05:38 14:20 11:3
--- NOTE | 2023-03-06 10:40 | HMH.PHAINT1 ---
Pharmacy Intervention Comments: Patient's discharge medications counseled: - no new meds No new questions at this time Buddy Medellin, Pharm Student
--- NOTE | 2023-03-07 13:29 | CARE MANAGER ---
Patient doing well. She denies any questions or concerns. She is aware of her follow up appointment and had no new medications.
== END 2023-03-06 11:10 | disposition home or self-care (01) ==
LOC: 2ND 12:30
PROVIDERS: Internal Medicine; Admitting Provider Internal Medicine Adolescent Medicine; PCP Nurse Practitioner Family; Visit Provider Internal Medicine Adolescent Medicine
DX: I70.213 Atherosclerosis of native arteries of extremities with intermittent claudication, bilateral legs (principal); F17.210 Nicotine dependence, cigarettes, uncomplicated; I25.10 Atherosclerotic heart disease of native coronary artery without angina pectoris; Z95.5 Presence of coronary angioplasty implant and graft; I77.1 Stricture of artery; E78.2 Mixed hyperlipidemia; I10 Essential (primary) hypertension; E03.9 Hypothyroidism, unspecified; Z79.01 Long term (current) use of anticoagulants; Z79.899 Other long term (current) drug therapy; I70.223 Atherosclerosis of native arteries of extremities with rest pain, bilateral legs
CPT/HCPCS: 36415; 37221; 80048; 80053; 83735; 85025; 85347; 87636; 99152; 99153; C1725; C1769; C1876; C1894; G0378; J1644; J2720; Q9966

== ENCOUNTER → 2023-03-13 10:54 | Outpatient (CLI) | payer MEDICAID, SELFPAY | PROVIDERS: PCP Nurse Practitioner Family; Visit Provider Specialist | DX: G47.33 Obstructive sleep apnea (adult) (pediatric) (principal) | CPT/HCPCS: G0399 ==

== ENCOUNTER → 2023-03-18 08:17 | Outpatient (CLI) | payer MEDICAID, SELFPAY ==
[2023-03-18 08:50] LABS: Basophils # 0.1 K/mm3 (0-0.2); Basophils % 0.9 % (0.1-2.0); Eosinophils # 0.7 K/mm3 (0.0-0.4); Eosinophils % 5.7 % (0.1-12.0); Hematocrit 39.2 % (37.0-47.0); Hemoglobin 12.8 g/dL (12.2-16.2); Lymphocytes # 3.6 K/mm3 (0.7-4.5); Lymphocytes % 29.9 % (10-50); Mean Corpuscular HGB Conc 32.7 g/dL (31.8-35.4); Mean Corpuscular Hemoglobin 28.8 pg (27.0-31.2); Mean Corpuscular Volume 88.3 fl (81-99); Mean Platelet Volume 7.6 fl (7.4-10.4); Monocytes # 0.5 K/mm3 (0.1-1.0); Monocytes % 4.3 % (1.7-9.3); Neutrophils # 7.2 K/mm3 (1.8-7.8); Neutrophils % 59.2 % (37.0-80.0); Platelet Count 365 K/mm3 (142-424); Red Blood Count 4.44 M/mm3 (4.20-5.40); Red Cell Distribution Width 13.2 % (11.5-17.5); White Blood Count 12.2 K/mm3 (4.8-10.8)
[2023-03-18 09:24] LABS: Anion Gap 13.9 mEq/L (5-15); Blood Urea Nitrogen 10 mg/dl (7-17); Calcium 9.4 mg/dl (8.4-10.2); Carbon Dioxide 26 mmol/L (22.0-30.0); Chloride 102 mmol/L (98-107); Estimated Glomerular Filt Rate 75 ml/min (>60); GFR (African American) 90 ML/MIN (>60); Glucose 100 mg/dl (74-100); Potassium 3.9 mmoL/L (3.5-5.1); Sodium 138 mmol/L (136-145)
== END ==
PROVIDERS: PCP Nurse Practitioner Family; Visit Provider Internal Medicine
DX: I25.10 Atherosclerotic heart disease of native coronary artery without angina pectoris (principal); Z95.5 Presence of coronary angioplasty implant and graft
CPT/HCPCS: 36415; 80048; 85025

== ENCOUNTER 2023-04-09 09:59 | Outpatient (RCR) | payer MEDICAID, SELFPAY | END 2023-05-12 14:00 | disposition home or self-care (01) | LOC: PT 09:59 | PROVIDERS: Visit Provider Internal Medicine | DX: I25.10 Atherosclerotic heart disease of native coronary artery without angina pectoris (principal); Z95.5 Presence of coronary angioplasty implant and graft ==

== ENCOUNTER → 2023-06-24 09:23 | Outpatient (CLI) | payer MEDICAID, SELFPAY ==
[2023-06-24 11:24] LABS: Alanine Aminotransferase 23 U/L (12-78); Albumin Level 4.3 g/dl (3.5-5.0); Alkaline Phosphatase 149 U/L (38-126); Aspartate Amino Transferase 34 U/L (14-36); Bilirubin,Direct 0.1 mg/dl (0.0-0.4); Bilirubin,Indirect 0.4 mg/dL (0.0-0.9); Bilirubin,Total 0.5 mg/dl (0.2-1.3); Bilirubin,Unconjugated 0.3 mg/dL (0.0-1.1); Chol/HDL Ratio 4.2 (1-3.5); Cholesterol 181 mg/dl (140-200); HDL Cholesterol 43 mg/dl (40-60); Total Protein,Serum 7.2 g/dl (6.3-8.2); Triglycerides 225 mg/dl (30-150); VLDL Cholesterol 45 mg/dL (0-40)
[2023-06-24 11:35] LABS: Direct LDL Cholesterol 100.59 mg/dL (100-129)
== END ==
PROVIDERS: PCP Nurse Practitioner Family; Visit Provider Physician Assistant
DX: I25.10 Atherosclerotic heart disease of native coronary artery without angina pectoris (principal); I11.9 Hypertensive heart disease without heart failure; I73.9 Peripheral vascular disease, unspecified; I77.1 Stricture of artery; I95.9 Hypotension, unspecified; E78.5 Hyperlipidemia, unspecified; F17.200 Nicotine dependence, unspecified, uncomplicated
CPT/HCPCS: 36415; 80061; 80076

== ENCOUNTER → 2023-07-23 11:31 | Outpatient (CLI) | payer MEDICAID, SELFPAY ==
[2023-07-23 12:06] LABS: Basophils # 0.1 K/mm3 (0-0.2); Basophils % 0.8 % (0.1-2.0); Eosinophils # 0.4 K/mm3 (0.0-0.4); Hematocrit 39.7 % (37.0-47.0); Hemoglobin 13.2 g/dL (12.2-16.2); Lymphocytes # 2.8 K/mm3 (0.7-4.5); Lymphocytes % 23.3 % (10-50); Mean Corpuscular HGB Conc 33.2 g/dL (31.8-35.4); Mean Corpuscular Hemoglobin 30.3 pg (27.0-31.2); Mean Corpuscular Volume 91.4 fl (81-99); Mean Platelet Volume 7.7 fl (7.4-10.4); Monocytes # 0.4 K/mm3 (0.1-1.0); Monocytes % 3.6 % (1.7-9.3); Neutrophils # 8.3 K/mm3 (1.8-7.8); Neutrophils % 69.2 % (37.0-80.0); Platelet Count 272 K/mm3 (142-424); Red Blood Count 4.35 M/mm3 (4.20-5.40); Red Cell Distribution Width 14.1 % (11.5-17.5)
[2023-07-23 12:51] LABS: Alanine Aminotransferase 23 U/L (12-78); Albumin Level 4.3 g/dl (3.5-5.0); Alkaline Phosphatase 158 U/L (38-126); Anion Gap 13.1 mEq/L (5-15); Aspartate Amino Transferase 32 U/L (14-36); Bilirubin,Direct 0.1 mg/dl (0.0-0.4); Bilirubin,Indirect 0.6 mg/dL (0.0-0.9); Bilirubin,Total 0.7 mg/dl (0.2-1.3); Bilirubin,Unconjugated 0.6 mg/dL (0.0-1.1); Blood Urea Nitrogen 7 mg/dl (7-17); Calcium 9.1 mg/dl (8.4-10.2); Carbon Dioxide 28 mmol/L (22.0-30.0); Chloride 101 mmol/L (98-107); Chol/HDL Ratio 3.6 (1-3.5); Cholesterol 167 mg/dl (140-200); Estimated Glomerular Filt Rate 87 ml/min (>60); GFR (African American) 106 ML/MIN (>60); Glucose 91 mg/dl (74-100); HDL Cholesterol 47 mg/dl (40-60); Potassium 3.1 mmoL/L (3.5-5.1); Sodium 139 mmol/L (136-145); Total Protein,Serum 7.1 g/dl (6.3-8.2); Triglycerides 142 mg/dl (30-150); VLDL Cholesterol 28 mg/dL (0-40)
[2023-07-23 13:02] LABS: Direct LDL Cholesterol 94.18 mg/dL (100-129)
[2023-07-23 13:09] LABS: Free T4 (Free Thyroxine) 1.12 ng/dl (0.78-2.19)
[2023-07-23 13:24] LABS: Thyroid Stimulating Hormone 2.09 uIU/mL (0.465-4.68)
== END ==
PROVIDERS: PCP Nurse Practitioner Family; Visit Provider Internal Medicine
DX: E78.5 Hyperlipidemia, unspecified (principal); I11.9 Hypertensive heart disease without heart failure; I25.10 Atherosclerotic heart disease of native coronary artery without angina pectoris; Z86.73 Personal history of transient ischemic attack (TIA), and cerebral infarction without residual deficits; I73.9 Peripheral vascular disease, unspecified; I77.1 Stricture of artery; I95.9 Hypotension, unspecified; R06.00 Dyspnea, unspecified; F17.200 Nicotine dependence, unspecified, uncomplicated
CPT/HCPCS: 36415; 80048; 80061; 80076; 84439; 84443; 85025

== ENCOUNTER 2023-07-30 16:05 | Emergency (ER) | payer MEDICAID, SELFPAY ==
[2023-07-30 16:06] VITALS: BP 147/118; PULSE 81; RESP 18; TEMP 36.7; O2SAT 99; BMI 24.9
--- NOTE | 2023-07-30 16:27 | XR_ITS ---
PROCEDURE INFORMATION: Exam: XR Left Tibia and Fibula Exam date and time: 07/30/2023 4:47 PM Age: 52 years old Clinical indication: Injury or trauma; Fall; Bleeding/hemorrhage and blunt trauma; Patient HX: Patient stepped into hole and fell forward hitting left lower leg on furnace. Large bleeding abrasion over left lower leg. ; Additional info: Fall, anterior trauma TECHNIQUE: Imaging protocol: Radiologic exam of the left tibia and fibula. Views: 2 views. COMPARISON: US ARTERIAL LOWER EXT REST 01/21/2023 8:23 AM FINDINGS: Bones/joints: The osseous structures are intact, with no signs of acute fracture, dislocation, or malalignment. Age-related degenerative changes are observed. There is no evidence of abnormal bone density or destructive lesions. No acute osseous injury. Soft tissues: The soft tissues appear within normal limits. There is some soft tissue swelling. No radiopaque foreign body is seen. IMPRESSION: 1. At the time of imaging, the study shows no acute osseous abnormalities but does reveal signs of age-related degenerative changes. 2. No radiopaque foreign body or acute osseous abnormality.
--- NOTE | 2023-07-30 16:27 | XR_ITS ---
PROCEDURE INFORMATION: Exam: XR Left Ankle Exam date and time: 07/30/2023 4:49 PM Age: 52 years old Clinical indication: Injury or trauma; Fall; Blunt trauma; Patient HX: Patient stepped into a hole and fell. Bruising and swelling over left ankle. TECHNIQUE: Imaging protocol: Radiologic exam of the left ankle. Views: 3 or more views. COMPARISON: CR XR TIBIA FIBULA LT 2V 07/30/2023 4:47 PM FINDINGS: Bones/joints: Minimally distracted fracture of the lateral malleolus with associated soft tissue swelling. No additional fracture or dislocation. No aggressive osseous lesion. Soft tissues: Soft tissues otherwise within normal limits. IMPRESSION: Minimally distracted fracture of the lateral malleolus with associated soft tissue swelling.
--- NOTE | 2023-07-30 16:27 | XR_ITS ---
PROCEDURE INFORMATION: Exam: XR Right Tibia and Fibula Exam date and time: 07/30/2023 4:52 PM Age: 52 years old Clinical indication: Injury or trauma; Fall; Bleeding/hemorrhage and blunt trauma; Injury details: Patient stepped into hole in basement, fell forward hitting furnace. Large bleeding abrasion over right lower leg. ; Additional info: Fall, anterior trauma TECHNIQUE: Imaging protocol: Radiologic exam of the right tibia and fibula. Views: 2 views. COMPARISON: US ARTERIAL LOWER EXT REST 01/21/2023 8:23 AM FINDINGS: Bones/joints: The osseous structures appear intact with no evidence of acute fracture, dislocation, or malalignment. Joint spaces are preserved. No abnormal bone density or destructive lesions are noted. Soft tissues: Soft tissues appear unremarkable. IMPRESSION: At the time of imaging, there is no evidence for acute osseous abnormalities. Clinical correlation is advised for comprehensive assessment.
--- NOTE | 2023-07-30 16:27 | HMH.EDGENADL ---
Discharge Plan Disposition Patient Disposition: Home, Self-Care Chief Complaint: Trauma Prescriptions Prescriptions: No Action atenolol 50 mg tablet 25 mg PO DAILY levothyroxine 25 mcg tablet 25 mcg PO DAILY Patient Comments: TAKE 1 TABLET BY MOUTH EVERY DAY fluticasone propionate 50 mcg/actuation spray,suspension 50 mcg intranasal . Patient Comments: SHAKE LIQUID AND USE 1 SPRAY IN EACH NOSTRIL EVERY DAY sertraline [Zoloft] 100 mg tablet 100 mg PO DAILY Qty: 30 1RF atorvastatin [Lipitor] 80 mg tablet 80 mg PO DAILY Qty: 30 2RF varenicline [Chantix Continuing Month Box] 1 mg tablet 1 mg PO BID Qty: 60 3RF Brilinta 90 mg tablet 90 mg PO BID Qty: 60 5RF potassium chloride [Klor-Con M20] 20 mEq tablet,ER particles/crystals 20 meq PO BID 3 Days Qty: 6 0RF Referrals Follow up/Referrals: Jesus Sevilla APRN [Primary Care Provider] - See instructions Yoni García DO [Staff Physician] - See instructions Activity Restrictions/Add. Instructions Additional Instructions/Restrictions: At this time is felt you are safe to be discharged home. Please use your crutches and wear your boot until you follow-up with Dr. García. Call his office and schedule an appointment as soon as you are able. Please change your dressings on your legs once a day by placing nonstick pad or moist gauze over the wounds and wrapping them. Please follow-up with your family doctor for long-term wound management. Clinical Impressions Clinical Impression: Blunt trauma, Noninfected skin tear of left leg, Noninfected skin tear of right leg, Lateral malleolar fracture Discharge ED Provider: [facility] HPI General Chief complaint: Trauma Stated complaint: AO fall 07/30, bilateral leg and feet pain Time Seen by Provider: 07/30/23 16:10 Mode of Arrival: Wheelchair Source of Information: Patient Limitations: No Limitations Description of Symptoms (Recalled from ER Triage Doc. by RN): PT STATES SHE WAS AT HOME AND WENT TO TURN AROUND WHEN SHE FORGOT THE FURNACE VENT WAS LAYERING THERE AND FELL INTO IT, DENIES LOC OR HITTING HEAD, PT IS ON [place], CONTROLLED BLEEDING NOTED TO BLE, REPORTS PAIN TO L FOOT WITH A HEMATOMA NOTED History of Present Illness HPI narrative: Patient is a 52-year-old female with past medical history of coronary artery disease status post stenting on dual antiplatelet therapy presents emergency department for evaluation of traumatic injury sustained in a fall. Patient fell into a register hole on her floor striking her anterior shins and injuring her left ankle. She presents here for continued evaluation. She denies other traumatic injuries, loss of consciousness, chest pain, abdominal pain, upper extremity pain. Last Tdap greater than 5 years. Related Data Home Medications Medication Instructions Recorded Confirmed levothyroxine 25 mcg tablet 25 mcg PO DAILY Thyroid 12/23/22 07/30/23 atenolol 50 mg tablet 25 mg PO DAILY Blood Pressure 03/18/23 07/30/23 fluticasone propionate 50 50 mcg intranasal . 06/26/23 07/30/23 mcg/actuation nasal spray,suspension Previous Rx's Medication Instructions Recorded ticagrelor 90 mg tablet (Brilinta) 90 mg PO BID AntiPlatelet/Coronary 04/25/23 Artery Stent #60 tabs atorvastatin 80 mg tablet (Lipitor) 80 mg PO DAILY #30 tabs 07/23/23 potassium chloride 20 mEq 20 meq PO BID 3 days #6 tabs 07/23/23 tablet,extended release(part/cryst) (Klor-Con M) varenicline 1 mg tablet (Chantix 1 mg PO BID #60 tabs 07/23/23 Continuing Month Box) sertraline 100 mg tablet (Zoloft) 100 mg PO DAILY #30 tabs 07/28/23 Allergies Allergy/AdvReac Type Severity Reaction Status Date / Time No Known Allergies Allergy Verified 07/28/23 09:05 [facility] Disclaimer: The information contained in this section may have been updated after the patient was seen, as this information can be updated by other users. [facility] [place]
[2023-07-30 16:30] VITALS: BP 116/82; PULSE 77; O2SAT 97
[2023-07-30 17:31] VITALS: BP 133/98; PULSE 76; O2SAT 99
[2023-07-30 18:00] VITALS: BP 134/101; PULSE 72; O2SAT 96
[2023-07-30 18:28] VITALS: BP 134/89; PULSE 74; RESP 19; TEMP 36.7; O2SAT 97
[2023-07-30 18:30] VITALS: BMI 24.9
== END 2023-07-30 18:31 | disposition home or self-care (01) ==
PROVIDERS: Emergency Provider Emergency Medicine; PCP Nurse Practitioner Family
DX: S82.62XA Displaced fracture of lateral malleolus of left fibula, initial encounter for closed fracture (principal); S81.801A Unspecified open wound, right lower leg, initial encounter; S81.802A Unspecified open wound, left lower leg, initial encounter; M79.672 Pain in left foot; I73.9 Peripheral vascular disease, unspecified; I10 Essential (primary) hypertension; E78.5 Hyperlipidemia, unspecified; E03.9 Hypothyroidism, unspecified; F17.210 Nicotine dependence, cigarettes, uncomplicated; Z79.01 Long term (current) use of anticoagulants; Z95.5 Presence of coronary angioplasty implant and graft; W01.198A Fall on same level from slipping, tripping and stumbling with subsequent striking against other object, initial encounter; Z23 Encounter for immunization
CPT/HCPCS: 73590; 73610; 90471; 90715; 99283

== ENCOUNTER 2023-09-09 14:07 | Outpatient (CLI) | payer MEDICAID, SELFPAY ==
--- NOTE | 2023-09-09 14:11 | XR_ITS ---
FINAL REPORT CLINICAL HISTORY: left ankle fx Jul, 2023 COMPARISON: 07/30/2023 FINDINGS: Left ankle Three views were obtained. There is calcification inferior to the lateral malleolus. Mild degenerative changes are present. There is lateral soft tissue swelling. IMPRESSION: Calcification inferior to the lateral malleolus. Reviewed, Interpreted and Dictated by Pola Del Cid III, MD Transcribed by Hilda Forbes Authenticated and . [facility]
== END 2023-09-09 23:59 ==
LOC: RAD 14:08
PROVIDERS: PCP Nurse Practitioner Family; Visit Provider Orthopaedic Surgery
DX: S82.892A Other fracture of left lower leg, initial encounter for closed fracture (principal)
CPT/HCPCS: 73610

== ENCOUNTER 2023-09-11 11:07 | Outpatient (CLI) | payer MEDICAID, SELFPAY ==
--- NOTE | 2023-09-11 11:08 | CT_ITS ---
FINAL REPORT TECHNIQUE: Thin section axial images were obtained from the lung apices to the upper abdomen by computed tomography. Reformatted images were obtained and reviewed. This study was performed with techniques to keep radiation doses al low as reasonably achievable (ALARA). Individualized dose reduction techniques using automated exposure control or adjustment of mA and/or kV according to the patient's size were employed. CLINICAL HISTORY: lung cancer screening smoker (1/2 pack) x 40 yrs COMPARISON: None FINDINGS: CHEST CT LOW DOSE 52-year-old female, current smoker, [id number] history of smoking. CTDI vol (mGy): 2.9 DLP (mGy-cm): 111.25 There is no axillary adenopathy. There is no mediastinal or hilar mass or adenopathy. The heart is normal in size. There is no pericardial or pleural effusion. There is mild emphysema and mild pulmonary scarring. Lung window images demonstrate no suspicious infiltrate or nodule. Multiple calcified granulomas are identified. Limited images of the upper abdomen reveal a gastric diverticulum. The gallbladder has been surgically resected.. IMPRESSION: Lung-RADS category 1. Recommend 12 month follow up low dose chest CT. Reviewed, Interpreted and Dictated by Pola Del Cid III, MD Transcribed by Phuong Chase Authenticated and [facility]
== END 2023-09-11 23:59 ==
LOC: RAD 11:08
PROVIDERS: PCP Nurse Practitioner Family; Visit Provider Obstetrics & Gynecology
DX: Z72.0 Tobacco use (principal); Z12.2 Encounter for screening for malignant neoplasm of respiratory organs
CPT/HCPCS: 71271

== ENCOUNTER 2023-10-23 09:50 | Outpatient (CLI) | payer MEDICAID, SELFPAY ==
[2023-10-23 10:38] LABS: Basophils # 0.1 K/mm3 (0-0.2); Basophils % 0.5 % (0.1-2.0); Eosinophils # 0.4 K/mm3 (0.0-0.4); Eosinophils % 3.5 % (0.1-12.0); Hematocrit 42.2 % (37.0-47.0); Hemoglobin 13.7 g/dL (12.2-16.2); Lymphocytes # 2.9 K/mm3 (0.7-4.5); Lymphocytes % 28.1 % (10-50); Mean Corpuscular HGB Conc 32.5 g/dL (31.8-35.4); Mean Corpuscular Hemoglobin 29.9 pg (27.0-31.2); Mean Corpuscular Volume 92.1 fl (81-99); Mean Platelet Volume 7.6 fl (7.4-10.4); Monocytes # 0.5 K/mm3 (0.1-1.0); Monocytes % 4.7 % (1.7-9.3); Neutrophils # 6.5 K/mm3 (1.8-7.8); Neutrophils % 63.2 % (37.0-80.0); Platelet Count 306 K/mm3 (142-424); Red Blood Count 4.59 M/mm3 (4.20-5.40); Red Cell Distribution Width 14.1 % (11.5-17.5); White Blood Count 10.3 K/mm3 (4.8-10.8)
[2023-10-23 10:52] LABS: Alanine Aminotransferase 31 U/L (12-78); Albumin Level 4.4 g/dl (3.5-5.0); Alkaline Phosphatase 123 U/L (38-126); Anion Gap 12.2 mEq/L (5-15); Aspartate Amino Transferase 28 U/L (14-36); Bilirubin,Indirect 0.8 mg/dL (0.0-0.9); Bilirubin,Total 0.8 mg/dl (0.2-1.3); Bilirubin,Unconjugated 0.7 mg/dL (0.0-1.1); Blood Urea Nitrogen 11 mg/dl (7-17); Carbon Dioxide 27 mmol/L (22.0-30.0); Chloride 105 mmol/L (98-107); Chol/HDL Ratio 3.8 (1-3.5); Cholesterol 161 mg/dl (140-200); Estimated Glomerular Filt Rate 87 ml/min (>60); GFR (African American) 106 ML/MIN (>60); Glucose 86 mg/dl (74-100); HDL Cholesterol 42 mg/dl (40-60); Potassium 4.2 mmoL/L (3.5-5.1); Sodium 140 mmol/L (136-145); Total Protein,Serum 7.1 g/dl (6.3-8.2); Triglycerides 154 mg/dl (30-150); VLDL Cholesterol 31 mg/dL (0-40)
[2023-10-23 11:02] LABS: Direct LDL Cholesterol 84.46 mg/dL (100-129)
[2023-10-23 11:07] LABS: Free T4 (Free Thyroxine) 0.98 ng/dl (0.78-2.19)
[2023-10-23 11:22] LABS: Thyroid Stimulating Hormone 3.69 uIU/mL (0.465-4.68)
== END 2023-10-23 23:59 ==
LOC: LAB 09:51
PROVIDERS: PCP Nurse Practitioner Family; Visit Provider Nurse Practitioner Family
DX: I11.9 Hypertensive heart disease without heart failure (principal); I25.10 Atherosclerotic heart disease of native coronary artery without angina pectoris; E78.5 Hyperlipidemia, unspecified; I73.9 Peripheral vascular disease, unspecified; I95.9 Hypotension, unspecified; F17.210 Nicotine dependence, cigarettes, uncomplicated
CPT/HCPCS: 36415; 80048; 80061; 80076; 83735; 84439; 84443; 85025

== ENCOUNTER 2025-05-01 05:42 | Emergency (ER) | payer MEDICAID, SELFPAY ==
--- OUTSIDE RECORDS SUMMARY | 2025-05-01 05:51 | XMS_ITS | Clinical Summary ---
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 Role Phone Unavailable Primary Care Provider Unavailabl e Social History Tobacco Use Types Packs/Day Years Used Date Smoking Tobacco: Never Assessed Comments Unknown Sex and Gender Information Value Date Recorded Sex Assigned at Not on file Legal Sex Female 8:32 AM EDT Gender Identity Not on file Sexual Orientation Not on file Last Filed Vital Signs Vital Sign Reading Time Taken Comments Blood Pressure 154/86 01/21/2023 8:36 AM EDT Pulse 68 01/21/2023 8:36 AM EDT Temperature - - Respiratory Rate - - Oxygen Saturation - - Inhaled Oxygen Concentration - - Weight 76.7 kg (169 lb) 01/21/2023 8:36 AM EDT Height 170.2 cm (5' 7 ) 01/21/2023 8:36 AM EDT Body Mass Index 26.47 01/21/2023 8:36 AM EDT Plan of Treatment Health Maintenance Due Date Last Done Comments [facility]-Depression Screening 1968 [facility]-/Child/Adol SDOH Screenings 1968 [facility]- SDOH Screenings 1986 [facility]-Adult SDOH Screenings 1986 [facility]-DTaP,Tdap,and Td Vaccine s (1 - Tdap) 12/15/1987 [facility]-Hepatitis B Vaccines (1 of 3 - 19+ 3-dose series) 12/15/1987 [facility]-Pap Smear 1989 [facility]-Cervical Cancer Screening 1998 [facility]-HPV/Cotest 1998 CT Colonography 2013 Colonoscopy 2013 FIT-DNA 2013 FIT 2013 FOBT 2013 Sigmoidoscopy 2013 [facility]-Colorectal Cancer Screening 2013 [facility]-Pneumococcal Vaccine: 50 + Years (1 of 1 - PCV) 2018 [facility]-Zoster Vaccines (1 of 2) 2018 [id number]-32 Vaccine (1 - 20 24-25 season) 2024 [facility]-Influenza Vaccine (#1) 2025 HPV Vaccines Aged Out No longer eligi ble based on patient's age to complete this topic [facility]-HIB Vaccines Aged Out No longer e ligible based on patient's age to complete this topic [facility]-Hepatitis A Vaccines Aged Out No longer eligible based on patient's age to complete this topic [facility]-IPV Vaccines Aged Out No longer e ligible based on patient's age to complete this topic [facility]-Rotavirus Vaccines Aged Out No lo nger eligible based on patient's age to complete this topic Insurance [employer]ICA[employer] [place]
--- NOTE | 2025-05-01 05:55 | CT_ITS ---
PROCEDURE INFORMATION: Exam: CT Lumbar Spine Without Contrast Exam date and time: 05/01/2025 6:19 AM Age: 54 years old Clinical indication: Injury or trauma; Fall; Additional info: Trauma, critical injury suspected, fell down 10 stairs this morning TECHNIQUE: Imaging protocol: Computed tomography of the lumbar spine without contrast. Radiation optimization: All CT scans at this facility use at least one of these dose optimization techniques: automated exposure control; mA and/or kV adjustment per patient size (includes targeted exams where dose is matched to clinical indication); or iterative reconstruction. COMPARISON: CT LUMBAR SPINE WO CON 05/01/2025 6:19 AM FINDINGS: Bones/joints: No acute fracture. Satisfactory alignment. Degenerative facet arthropathy in the lumbar spine, most notable on the right from L3 through S1. No significant central canal stenosis or osseous neural foraminal narrowing. Soft tissues: Subcutaneous edema/inflammation overlying the lower lumbar spine and pelvis, greater on the left. IMPRESSION: 1. No acute osseous findings. 2. Subcutaneous edema/inflammation overlies the lumbar spine and pelvis most notably on the left.
--- NOTE | 2025-05-01 05:55 | XR_ITS ---
PROCEDURE INFORMATION: Exam: XR Right Foot Exam date and time: 05/01/2025 6:32 AM Age: 54 years old Clinical indication: Injury or trauma; Fall; Blunt trauma; Foot; Right; Additional info: Fall foot pain TECHNIQUE: Imaging protocol: Radiologic exam of the right foot. Views: 3 or more views. COMPARISON: CR XR TIBIA FIBULA RT 2V 07/30/2023 4:52 PM FINDINGS: Bones/joints: No acute fracture, dislocation or osseous destructive process. Soft tissues: No acute findings or radiopaque foreign body. IMPRESSION: No acute findings.
--- NOTE | 2025-05-01 05:55 | CT_ITS ---
PROCEDURE INFORMATION: Exam: CT Cervical Spine Without Contrast Exam date and time: 05/01/2025 6:15 AM Age: 54 years old Clinical indication: Injury or trauma; Fall; Blunt trauma; Additional info: Trauma, critical injury suspected, fell down 10 stairs this morning TECHNIQUE: Imaging protocol: Computed tomography of the cervical spine without contrast. Radiation optimization: All CT scans at this facility use at least one of these dose optimization techniques: automated exposure control; mA and/or kV adjustment per patient size (includes targeted exams where dose is matched to clinical indication); or iterative reconstruction. COMPARISON: CT CERVICAL SPINE WO CON 05/01/2025 6:15 AM FINDINGS: Bones/joints: Diffuse cervical spondylosis is noted. Hypertrophic changes of the facet present bilaterally. Discs/Spinal canal/Neural foramina: Narrowing of multiple intervertebral disc spaces are seen. Moderate neural foraminal narrowing is also noted. Lungs: Lung apices are normal. Vasculature: No obvious traumatic injury is seen. Carotid atherosclerosis is present. Soft tissues: Unremarkable. IMPRESSION: 1. No evidence of acute traumatic injury. 2. Diffuse cervical spondylosis. 3. Carotid atherosclerosis is present.
--- NOTE | 2025-05-01 05:55 | CT_ITS ---
PROCEDURE INFORMATION: Exam: CTA Abdomen and Pelvis With Contrast Exam date and time: 05/01/2025 6:28 AM Age: 54 years old Clinical indication: Injury or trauma; Fall; Additional info: Trauma, critical injury suspected, fell down 10 stairs this morning, on blood thinners TECHNIQUE: Imaging protocol: Computed tomographic angiography of the abdomen and pelvis with contrast. Exam focused on the arteries. 3D rendering (Not supervised by radiologist): MIP and/or 3D reconstructed images were created by the technologist. Radiation optimization: All CT scans at this facility use at least one of these dose optimization techniques: automated exposure control; mA and/or kV adjustment per patient size (includes targeted exams where dose is matched to clinical indication); or iterative reconstruction. Contrast material: ISOVUE 370; Contrast volume: 80 ml; Contrast route: INTRAVENOUS (IV); COMPARISON: CT BONY PELVIS 05/01/2025 6:22 AM FINDINGS: Aorta: Atherosclerotic nonaneurysmal aorta. Celiac trunk and mesenteric arteries: No occlusion or significant stenosis. Renal arteries: Mild atherosclerotic narrowing of the right renal artery origin which is patent. Right iliac arteries: There are bilateral common iliac artery stents which appear to be patent. Left iliac arteries: See above. Liver: No acute findings in the liver. Gallbladder and biliary ducts: The patient is status post cholecystectomy. Pancreas: No acute abnormality of the pancreas. Spleen: No acute findings in the spleen. Adrenal glands: Unremarkable. No mass. Kidneys and ureters: Kidneys enhance and excrete contrast normally. Stomach and bowel: There is a large uncomplicated gastric diverticulum containing fluid and air. No bowel obstruction. Appendix: No evidence of appendicitis. Intraperitoneal space: No free air or free fluid. Lymph nodes: No pathologically enlarged lymph nodes. Urinary bladder: No evidence of urinary bladder rupture. Reproductive: Unremarkable as visualized. Bones/joints: No acute osseous findings. Soft tissues: Soft tissue swelling/edema and hematoma overlie the right hip, buttock and left side of the pelvis and lower lumbar spine. IMPRESSION: 1. No acute intra-abdominal or intrapelvic findings. 2. Other chronic and postsurgical changes as described. 3. Refer to CT lumbar spine and pelvis performed on the same date.
--- NOTE | 2025-05-01 05:55 | CT_ITS ---
PROCEDURE INFORMATION: Exam: CTA Chest With Contrast Exam date and time: 05/01/2025 6:28 AM Age: 54 years old Clinical indication: Injury or trauma; Fall; Additional info: Trauma, critical injury suspected, fell down 10 stairs this morning, on blood thinners TECHNIQUE: Imaging protocol: Computed tomographic angiography of the chest with contrast. Exam focused on the arteries. 3D rendering (Not supervised by radiologist): MIP and/or 3D reconstructed images were created by the technologist. Radiation optimization: All CT scans at this facility use at least one of these dose optimization techniques: automated exposure control; mA and/or kV adjustment per patient size (includes targeted exams where dose is matched to clinical indication); or iterative reconstruction. Contrast material: ISOVUE 370; Contrast volume: 80 ml; Contrast route: INTRAVENOUS (IV); COMPARISON: CT LUNG SCREENING 09/11/2023 11:17 AM FINDINGS: Pulmonary arteries: No pulmonary emboli. Aorta: No aortic aneurysm or dissection. Soft plaque as well as atherosclerotic calcifications in the descending thoracic aorta. Lungs: Mild emphysematous changes in the upper lobes. No acute appearing airspace disease or consolidation. Calcified granulomata bilaterally. Pleural spaces: No pleural effusion or pneumothorax. Heart: No cardiomegaly. No pericardial effusion. Coronary arteries: There is atherosclerotic calcification of the coronary arteries. Esophagus: Gastroesophageal reflux. Lymph nodes: Small calcified hilar and mediastinal lymph nodes. Bones/joints: No acute fracture. Soft tissues: No acute findings. IMPRESSION: 1. No convincing evidence of aortic aneurysm or dissection. Soft plaque and atherosclerotic calcifications in the descending thoracic aorta. 2. Mild emphysematous changes in the upper lobes. 3. Gastroesophageal reflux. 4. Chronic granulomatous changes. 5. No acute osseous findings. COMMENTS: The presence of pulmonary emphysema on CT is an independent risk factor for lung cancer. In the absence of a history or active diagnosis of lung cancer, it is recommended that this patient with emphysema be evaluated for enrollment in a low dose CT lung cancer screening program.
--- NOTE | 2025-05-01 05:55 | CT_ITS ---
PROCEDURE INFORMATION: Exam: CTA Head With Contrast, Arteriography Exam date and time: 05/01/2025 6:24 AM Age: 54 years old Clinical indication: Injury or trauma; Fall; Additional info: Trauma, critical injury suspected, fell down 10 stairs this morning, on blood thinners TECHNIQUE: Imaging protocol: Computed tomographic angiography of the head with contrast. Exam focused on the arteries. 3D rendering (Not supervised by radiologist): MIP and/or 3D reconstructed images were created by the technologist. Radiation optimization: All CT scans at this facility use at least one of these dose optimization techniques: automated exposure control; mA and/or kV adjustment per patient size (includes targeted exams where dose is matched to clinical indication); or iterative reconstruction. Contrast material: ISOVUE 370; Contrast volume: 80 ml; Contrast route: INTRAVENOUS (IV); COMPARISON: CT HEAD/BRAIN WO CON 05/01/2025 6:13 AM FINDINGS: ANTERIOR CIRCULATION: Right internal carotid artery: There is moderate stenosis of the cavernous segment and mild to moderate stenosis of the supraclinoid segment secondary to calcified plaque. Right middle cerebral artery: No occlusion or significant stenosis. No aneurysm. Right anterior cerebral artery: No occlusion or significant stenosis. No aneurysm. Left internal carotid artery: There is severe stenosis of the cavernous segment and mild stenosis of the supraclinoid segment secondary to calcified plaque. Left middle cerebral artery: No occlusion or significant stenosis. No aneurysm. Left anterior cerebral artery: No occlusion or significant stenosis. No aneurysm. POSTERIOR CIRCULATION: Right vertebral artery: No occlusion or significant stenosis. No aneurysm. Left vertebral artery: No occlusion or significant stenosis. No aneurysm. Basilar artery: No occlusion or significant stenosis. No aneurysm. Right posterior cerebral artery: No occlusion or significant stenosis. No aneurysm. Left posterior cerebral artery: No occlusion or significant stenosis. No aneurysm. Brain: No definite mass, mass effect, or midline shift. Cerebral ventricles: No ventriculomegaly. Bones/joints: Unremarkable. No acute fracture. Soft tissues: Unremarkable. IMPRESSION: Bilateral internal carotid artery stenosis left greater than right. Otherwise patent [id number].
--- NOTE | 2025-05-01 05:55 | CT_ITS ---
PROCEDURE INFORMATION: Exam: CT Thoracic Spine Without Contrast Exam date and time: 05/01/2025 6:17 AM Age: 54 years old Clinical indication: Injury or trauma; Fall; Blunt trauma (contusions or hematomas); Additional info: Trauma, critical injury suspected, fell down 10 stairs this morning TECHNIQUE: Imaging protocol: Computed tomography of the thoracic spine without contrast. Radiation optimization: All CT scans at this facility use at least one of these dose optimization techniques: automated exposure control; mA and/or kV adjustment per patient size (includes targeted exams where dose is matched to clinical indication); or iterative reconstruction. COMPARISON: CT THORACIC SPINE WO CON 05/01/2025 6:17 AM FINDINGS: Bones/joints: No acute fracture. Normal alignment. No significant disc bulge or herniation. No severe spinal canal stenosis. No significant neural foraminal narrowing. Soft tissues: No acute findings. Esophagus: Gastroesophageal reflux. Lungs: Calcified granulomata in the lungs and calcified hilar and mediastinal lymph nodes. Mild emphysematous changes in the lung apices. IMPRESSION: 1. No acute osseous findings. 2. Gastroesophageal reflux. 3. Emphysema.
--- NOTE | 2025-05-01 05:55 | XR_ITS ---
PROCEDURE INFORMATION: Exam: XR Right Tibia and Fibula Exam date and time: 05/01/2025 6:32 AM Age: 54 years old Clinical indication: Injury or trauma; Fall; Blunt trauma; Lower leg; Right; Additional info: Fall pain TECHNIQUE: Imaging protocol: Radiologic exam of the right tibia and fibula. Views: 2 views. COMPARISON: CR XR TIBIA FIBULA RT 2V 07/30/2023 4:52 PM FINDINGS: Bones/joints: No acute fracture, dislocation or osseous destructive process. Soft tissues: No acute finding or radiopaque foreign body. IMPRESSION: No acute findings.
--- NOTE | 2025-05-01 05:55 | CT_ITS ---
PROCEDURE INFORMATION: Exam: CTA Neck With Contrast Exam date and time: 05/01/2025 6:24 AM Age: 54 years old Clinical indication: Injury or trauma; Fall; Additional info: Trauma, critical injury suspected, fell down 10 stairs this morning, on blood thinners TECHNIQUE: Imaging protocol: Computed tomographic angiography of the neck with contrast. Exam focused on the cervical segments of the vasculature. 3D rendering (Not supervised by radiologist): MIP and/or 3D reconstructed images were created by the technologist. Radiation optimization: All CT scans at this facility use at least one of these dose optimization techniques: automated exposure control; mA and/or kV adjustment per patient size (includes targeted exams where dose is matched to clinical indication); or iterative reconstruction. Contrast material: ISOVUE 370; Contrast volume: 80 ml; Contrast route: INTRAVENOUS (IV); COMPARISON: CT CERVICAL SPINE WO CON 05/01/2025 6:15 AM FINDINGS: Right common carotid artery: No stenosis. No dissection or occlusion. Right internal carotid artery: There is stenosis at the origin the right internal carotid artery measuring less than 50% secondary to soft and calcified plaque. The remainder appears patent. Right external carotid artery: No occlusion or stenosis of the origin. Left common carotid artery: No stenosis. No dissection or occlusion. Left internal carotid artery: There is stenosis at the origin of the left internal carotid artery measuring less than 50% secondary to soft and calcified plaque. The remainder appears patent. Left external carotid artery: No occlusion or stenosis of the origin. Right vertebral artery: No stenosis. No dissection or occlusion. Left vertebral artery: No stenosis. No dissection or occlusion. Soft tissues: Normal. No significant soft tissue swelling. Bones/joints: No acute fracture. COPD changes are noted. IMPRESSION: Mild bilateral internal carotid artery origin stenosis. No evidence of vascular injury. REFERENCES: NASCET CRITERIA. The degree of stenosis in the cervical segment of the internal carotid artery is based on NASCET criteria. Normal is no stenosis. Mild is less than 50% stenosis. Moderate is 50-69% stenosis. Severe is 70% to 99% stenosis. Total occlusion is no detectable patent lumen.
--- NOTE | 2025-05-01 05:55 | CT_ITS ---
PROCEDURE INFORMATION: Exam: CT Head Without Contrast Exam date and time: 05/01/2025 6:13 AM Age: 54 years old Clinical indication: Injury or trauma; Fall; Blunt trauma (contusions or hematomas); Additional info: Trauma, critical injury suspected, fall down 10 stairs this morning TECHNIQUE: Imaging protocol: Computed tomography of the head without contrast. Radiation optimization: All CT scans at this facility use at least one of these dose optimization techniques: automated exposure control; mA and/or kV adjustment per patient size (includes targeted exams where dose is matched to clinical indication); or iterative reconstruction. COMPARISON: CT HEAD/BRAIN WO CON 05/01/2025 6:13 AM FINDINGS: Brain: Normal. No hemorrhage. Unremarkable white matter. No mass effect. Cerebral ventricles: No ventriculomegaly. Paranasal sinuses: Visualized sinuses are unremarkable. No fluid levels. Mastoid air cells: Visualized mastoid air cells are well aerated. Bones: Unremarkable. No acute fracture. Soft tissues: Unremarkable. IMPRESSION: No acute intracranial abnormality.
--- NOTE | 2025-05-01 05:55 | XR_ITS ---
PROCEDURE INFORMATION: Exam: XR Right Ankle Exam date and time: 05/01/2025 6:32 AM Age: 54 years old Clinical indication: Injury or trauma; Fall; Blunt trauma; Ankle; Right; Additional info: Fall, ankle pain TECHNIQUE: Imaging protocol: Radiologic exam of the right ankle. Views: 3 or more views. COMPARISON: CR XR TIBIA FIBULA RT 2V 07/30/2023 4:52 PM FINDINGS: Bones/joints: No acute fracture, dislocation or osseous destructive process. Soft tissues: No acute finding or radiopaque foreign body. IMPRESSION: No acute findings.
--- NOTE | 2025-05-01 05:56 | CT_ITS ---
PROCEDURE INFORMATION: Exam: CT Pelvis Without Contrast, Skeleton Exam date and time: 05/01/2025 6:22 AM Age: 54 years old Clinical indication: Injury or trauma; Fall; Additional info: Trauma, critical injury suspected, fell down 10 stairs this morning. Pain to right hip TECHNIQUE: Imaging protocol: Computed tomography of the pelvis without contrast. Exam focused on the skeleton. Radiation optimization: All CT scans at this facility use at least one of these dose optimization techniques: automated exposure control; mA and/or kV adjustment per patient size (includes targeted exams where dose is matched to clinical indication); or iterative reconstruction. COMPARISON: CT BONY PELVIS 05/01/2025 6:22 AM FINDINGS: Vasculature: There are stents in the bilateral common iliac arteries. Bones/joints: No acute fracture, dislocation or osseous destructive process. Soft tissues: There is marked soft tissue swelling/edema and hematoma in the subcutaneous tissues overlying the right hip and upper femur. Subcutaneous inflammatory changes are noted overlying the lumbar spine and pelvis on the left and right buttock. IMPRESSION: 1. No acute osseous findings. 2. Multifocal soft tissue swelling/edema and hematoma as described, most notably overlying the right hip and lateral upper thigh.
[2025-05-01 06:02] VITALS: BP 177/76; PULSE 71; RESP 16; TEMP 37.1; O2SAT 100; BMI 21.9
--- NOTE | 2025-05-01 06:09 | PC.NURSE ---
Per provider C-collar applied. Applied C-collar. Post applied, PT refused stating it was making her anxious. Provider notified.
[2025-05-01 06:10] VITALS: O2SAT 100
--- NOTE | 2025-05-01 06:12 | PC.NURSE ---
PT transported to radiology via stretcher by radiology staff.
[2025-05-01 06:15] LABS: Hematocrit 36.2 % (37.0-47.0); Hemoglobin 12.0 g/dL (12.2-16.2); Immature Granulocytes % 0.3 %; Mean Corpuscular HGB Conc 33.1 g/dL (31.8-35.4); Mean Corpuscular Hemoglobin 29.2 pg (27.0-31.2); Mean Corpuscular Volume 88.1 fl (81-99); Nucleated Red Blood Cells % 0 %; Platelet Count 283 K/mm3 (142-424); Red Blood Count 4.11 M/mm3 (4.20-5.40); Red Cell Distribution Width-SD 44.0 fL; White Blood Count 11.7 K/mm3 (4.8-10.8)
[2025-05-01] MEDS: 0.9 % SODIUM CHLORIDE 50 ML VIAL IV ×2 (06:23→06:26)
[2025-05-01] MEDS: IOPAMIDOL-370 (76%);100ML BOTTLE 80 ML IV ×2 (06:23→06:27)
[2025-05-01] MEDS: SODIUM CHLORIDE 0.9% 10ML SYR (RAD ONLY) 10 ML IV ×2 (06:23→06:26)
[2025-05-01 06:26] LABS: Chloride 104 mmol/L (98-107)
[2025-05-01 06:27] LABS: Albumin Level 4.6 g/dl (3.5-5.0); Potassium 3.7 mmoL/L (3.5-5.1); Sodium 136 mmol/L (136-145)
[2025-05-01 06:29] LABS: Blood Urea Nitrogen 9 mg/dl (7-17); Creatinine Clearance Estimated 90 mL/min (50-200); Creatinine,Serum 0.70 mg/dl (0.52-1.04); Estimated Glomerular Filt Rate 87 ml/min (>60); GFR (African American) 105 ML/MIN (>60)
[2025-05-01 06:30] LABS: Alanine Aminotransferase 18 U/L (12-78); Albumin/Globulin Ratio 1.5 (1.1-1.8); Alkaline Phosphatase 117 U/L (38-126); Anion Gap 8.7 mEq/L (5-15); Aspartate Amino Transferase 33 U/L (14-36); Bilirubin,Total 1.0 mg/dl (0.2-1.3); Calcium 9.8 mg/dl (8.4-10.2); Carbon Dioxide 27 mmol/L (22.0-30.0); Globulin 3.0 g/dL (1.3-3.2); Glucose 106 mg/dl (74-100); Total Protein,Serum 7.6 g/dl (6.3-8.2)
--- NOTE | 2025-05-01 06:36 | [facility].EDGENADL ---
Discharge Plan Disposition Patient Disposition: Home, Self-Care Prescriptions Prescriptions: No Action aspirin 81 mg tablet,delayed release (DR/EC) 81 mg PO DAILY levothyroxine 25 mcg tablet 25 mcg PO DAILY Patient Comments: TAKE 1 TABLET BY MOUTH EVERY DAY fluticasone propionate 50 mcg/actuation spray,suspension 50 mcg intranasal . Patient Comments: SHAKE LIQUID AND USE 1 SPRAY IN EACH NOSTRIL EVERY DAY sertraline 100 mg tablet See Rx Instructions .ROUTE .COMPLEX Qty: 30 0RF Dose Instruction: TAKE 1 TABLET BY MOUTH DAILY Rx Instructions: TAKE 1 TABLET BY MOUTH DAILY varenicline tartrate [Chantix Continuing Month Box] 1 mg tablet 1 mg PO BID Qty: 60 3RF atenolol 25 mg tablet 25 mg PO DAILY Qty: 90 3RF atorvastatin [Lipitor] 80 mg tablet 80 mg PO DAILY Qty: 90 3RF ticagrelor [Brilinta] 90 mg tablet 90 mg PO BID Qty: 60 5RF Referrals Follow up/Referrals: Jesus Sevilla APRN [Primary Care Provider, Medical] - See instructions Activity Restrictions/Add. Instructions Additional Instructions/Restrictions: Keep ice on your hematomas for 40 minutes at a time 20 minutes off to help reduce swelling. Keep an liliana bandage wrapped tightly around your hematoma to help reduce swelling as well. Return to the emergency department for any new or worsening symptoms. Clinical Impressions Clinical Impression: Fall, Hematoma Print Language Print Language: Pakistani Discharge ED Provider: Winsome Starr General Adult HPI <Andres Sousa MD - Last Filed: 05/01/25 06:54> General Chief complaint: Fall Stated complaint: AO 05/01/25 05:00, fell down steps Time Seen by Provider: 05/01/25 05:45 Mode of Arrival: Ambulatory Source of Information: Patient Description of Symptoms (Recalled from ER Triage Doc. by RN): Pt presents to the ED for evaluation of a fall down 10 stairs 1 hour prior to arrival. PT stated she woke up and felt like her R ankle just gave out. PT stated she did hit her head. Denies LOC. Takes Brilinta, blood thinner. PT noted tp have a large hematoma to R lower hip, bruising to coccyx, L hip pain on movement, R ankle pain with swelling and discoloration, Neck pain. History of Present Illness HPI narrative: 48 female with history of coronary artery disease on Brilinta presents for fall. She reports that she felt her ankle gave out and she fell down approximately 7 steps, landing on her coccyx and sliding down the stairs. She reports severe pain in her buttock region as well as hematoma formation. She also reports neck pain back pain and right ankle and left hip pain. Denies any headache. Related Data Home Medications ?Medication ?Instructions ?Recorded ?Confirmed levothyroxine 25 mcg tablet 25 mcg PO DAILY Thyroid 12/23/22 03/23/24 fluticasone propionate 50 50 mcg intranasal . 06/26/23 03/23/24 mcg/actuation nasal spray,suspension aspirin 81 mg tablet,delayed 81 mg PO DAILY 10/02/23 03/23/24 release Previous Rx's ?Medication ?Instructions ?Recorded sertraline 100 mg tablet See Rx Instructions .Route 12/17/23 .COMPLEX #30 tabs varenicline tartrate 1 mg tablet 1 mg PO BID #60 tabs 04/06/24 (Chantix Continuing Month Box) atenolol 25 mg tablet 25 mg PO DAILY #90 tabs 10/05/24 atorvastatin 80 mg tablet (Lipitor) 80 mg PO DAILY #90 tabs 10/25/24 ticagrelor 90 mg tablet (Brilinta) 90 mg PO BID AntiPlatelet/Coronary 04/26/25 Artery Stent #60 tabs Allergies Allergy/AdvReac Type Severity Reaction Status Date / Time No Known Allergies Allergy Verified 05/01/25 06:16 [facility] <Andres Sousa MD - Last Filed: 05/01/25 06:54> [facility] Disclaimer: The information contained in this section may have been updated after the patient was seen, as this information can be updated by other users. Medical History Chest pain MARI (obstructive sleep apnea) Peripheral arterial disease Hypothyroidism Insomnia Panic attack Ventricular fibrillation Hyperlipidemia Hypertension Transient visual loss of right eye Abnormal result of cardiovascular function study Claudication Abnormal ankle brachial index Surgical History History of cataract surgery History of D&C History of History of cholecystectomy S/P coronary artery stent placement Family History Other No significant family history Social History Smoking Status: Current every day smoker tobacco type: cigarettes packs per day: 1 years smoked: 40 second hand exposure: No alcohol intake: former year quit: 2020 counseling given: No substance use type: denies use counseling given: No current occupational status: unemployed Travel in the last 8 weeks?: Inside the [place] adopted: No caregiver/support person: No foster care: No household members: significant other housing: house lives independently: Yes marital status: number of children: 1 number of grandchildren: 2 education level: other details: she went to the 9th grade; she states that she wouldn't go to school; GED+ service: No Hx Recent Travel: No sexually active: No caffeine: Yes physical activity: none kevin/protestant: None special kevin needs: No working smoke detector in home: Yes fire extinguisher in home: Yes carbon monox detector in home: No firearms in home: No do you feel safe at home: Yes victim of physical abuse: No victim of emotional abuse: No victim of sexual abuse: No would you like helpful sources: No Have you lived/traveled outside [place] in past 30 days?: No Contact w/someone who lives/traveled outside US past 30 days?: No Exposure to someone with infectious disease in past 14 days?: No Do you have a fever (greater than 100.4 F or 38 C)?: No Have you tested positive for COVID-19?: No Exposed to someone with COVID-19 in past 14 days?: No Do you have a sore throat?: No Do you have a cough?: No Do you have any weakness?: No Do you have any diarrhea?: No Are you experiencing any unusual bleeding?: No Do you have any muscle aches/pain?: No Do you have any abdominal pain?: No Are you experiencing loss of taste or smell?: No Other Medical History Have you received the Pneumonia Vaccine: No <Andres Sousa MD - Last Filed: 05/01/25 06:54> ROS Obtained: Yes All systems reviewed & no additional complaints except as documented Physical Exam <Andres Sousa MD - Last Filed: 05/01/25 06:54> General General appearance: alert and anxious Head Head exam: atraumatic and normocephalic Eye Eye exam: Present normal appearance, PERRL and EOMI ENT ENT exam: Present normal oropharynx and normal external ear exam Neck Neck exam: Present normal inspection and tenderness Chest Chest inspection: Present normal inspection and symmetric chest wall rise; Absent tenderness Respiratory Respiratory exam: Present normal lung sounds bilaterally; Absent respiratory distress Cardiovascular Cardiovascular exam: Present regular rate and normal rhythm Abdominal Exam Abdominal exam: Present soft; Absent distention, tenderness or guarding Extremities Exam Extremities exam: Present other (Large hematomas to the right proximal thigh, over the gluteal region. Patient also has tenderness to the left hip, right tib-fib ankle and foot.) Back Exam Back exam: Present normal inspection and tenderness (Hematoma over the low back/buttock) Neurological Exam Neurological exam: Present alert and oriented X3; Absent motor sensory deficit Psychiatric Psychiatric exam: Present normal affect and normal mood Skin Skin exam: Present warm, dry and normal color Lymphatic Lymphatic Findings: no adenopathy Medical Decision Making <Andres Sousa MD - Last Filed: 05/01/25 06:54> Medical Records Medical records reviewed: Yes I reviewed the patient's medical records. Screening: Per USPSTF and CDC recommendations, given the prevalence of disease in our region, it is our hospital?s policy to screen for HIV and viral Hepatitis for all patients aged 18 and over and those with ongoing risk factors. Constantino Inquiry Pt receiving controlled substance: No Constantino was queried for this patient: No Vital Signs: 05/01/25 06:02 05/01/25 06:10 05/01/25 06:43 Temperature 98.7 F Temperature Source Oral Pulse Rate 64 Pulse Rate [Right] 71 Respiratory Rate 16 16 Blood Pressure 167/134 H Blood Pressure [Right Arm] 177/76 H Blood Pressure Mean [Right Arm] 109 02 Sat by Pulse Oximetry 100 100 99 Oxygen Delivery Method Room Air Room Air Lab Data Lab results reviewed: Yes I reviewed the patient's lab results. Lab Results 05/01/25 06:00: WBC 11.7 H, RBC 4.11 L, Hgb 12.0 L, Hct 36.2 L, MCV 88.1, MCH 29.2, MCHC 33.1, RDW 13.7, Plt Count 283, MPV 9.4, Neut % (Auto) 59.4, Lymph % (Auto) 29.2, Rich % (Auto) 6.5, Eos % (Auto) 3.7, Baso % (Auto) 0.9, Neut # (Auto) 6.9, Lymph # (Auto) 3.4, Rich # (Auto) 0.8, Eos # (Auto) 0.4, Baso # (Auto) 0.1, Sodium 136, Potassium 3.7, Chloride 104, Carbon Dioxide 27, Anion Gap 8.7, BUN 9, Creatinine 0.70, Estimated Creat Clear 90, Estimated GFR 87, Est GFR ( Amer) 105, Glucose 106 H, Calcium 9.8, Total Bilirubin 1.0, AST 33, ALT 18, Alkaline Phosphatase 117, Total Protein 7.6, Albumin 4.6, Globulin 3.0, Albumin/Globulin Ratio 1.5 05/01/25 06:00 05/01/25 06:00 Orders (Tests/Meds): ED MEDICATIONS Discontinued Medications Generic Name Dose Route Start Last Admin Trade Name Freq PRN Reason Stop Dose Admin Acetaminophen 1,000 mg 05/01/25 05:55 05/01/25 06:41 Acetaminophen 500mg Tab PO 05/01/25 05:56 1,000 mg ONCE ONE Administration Iopamidol 80 ml 05/01/25 06:22 05/01/25 06:23 Iopamidol-370 (76%);100ml Bottle IV 05/01/25 06:23 80 ml ONCE ONE Administration Iopamidol 80 ml 05/01/25 06:26 05/01/25 06:27 Iopamidol-370 (76%);100ml Bottle IV 05/01/25 06:27 80 ml ONCE ONE Administration Morphine Sulfate 4 mg 05/01/25 05:55 05/01/25 06:40 Morphine 4mg/Ml Syringe IV 05/01/25 05:56 4 mg ONCE ONE Administration Sodium Chloride 50 ml 05/01/25 06:22 05/01/25 06:23 0.9 % Sodium Chloride 50 Ml Vial IV 05/01/25 06:23 50 ml ONCE ONE Administration Sodium Chloride 10 ml 05/01/25 06:22 05/01/25 06:23 Sodium Chloride 0.9% 10ml Syr (Rad Only) IV 05/01/25 06:23 10 ml ONCE ONE Administration Sodium Chloride 50 ml 05/01/25 06:26 05/01/25 06:26 0.9 % Sodium Chloride 50 Ml Vial IV 05/01/25 06:27 50 ml ONCE ONE Administration Sodium Chloride 10 ml 05/01/25 06:26 05/01/25 06:26 Sodium Chloride 0.9% 10ml Syr (Rad Only) IV 05/01/25 06:27 10 ml ONCE ONE Administration ORDERS Category Date Time Status CT angio abd/pel - TRAUMA Stat Cat Scan 05/01/25 05:[address] angio chest - dissection Stat Cat Scan 05/01/25 05:[address] angio head Stat Cat Scan 05/01/25 05:[address] angio neck Stat Cat Scan 05/01/25 05:[address] bony pelvis Stat Cat Scan 05/01/25 05:[address] cervical spine wo con Stat Cat Scan 05/01/25 05:[address] head/brain wo con Stat Cat Scan 05/01/25 05:[address] lumbar spine wo con Stat Cat Scan 05/01/25 05:[address] thoracic spine wo con Stat Cat Scan 05/01/25 05:55 Completed Ankle XR -Right minimum 3 Views [XR ankle RT min 3V] Exams 05/01/25 05:55 Completed Stat Foot XR right minimum 3 views [XR foot RT min 3V] Stat Exams 05/01/25 05:55 Completed Tibia/fibula XR right 2 views [XR tibia fibula RT 2V] Exams 05/01/25 05:55 Completed Stat CBC w/Auto Diff [Complete Blood Count Auto Diff] Stat Lab 05/01/25 06:00 Completed CMP [Comprehensive Metabolic Panel] Stat Lab 05/01/25 06:00 Completed HIV Combo Stat Lab 05/01/25 06:00 Received Hepatitis C Ab Qual. W/ RFX Stat Lab 05/01/25 06:00 Received INR [Prothrombin Time INR] Stat Lab 05/01/25 06:00 Received Medical Decision Narrative: 54-year-old female with history of coronary artery disease on Brilinta presents for fall with neck pain, back pain, right leg pain, hematomas. History was obtained via interactive discussion with patient, family, chart review. On arrival, patient is [afebrile, hemodynamically stable, satting appropriately, alert, oriented x4, GCS 15], moving all extremities spontaneously. Full physical exam performed and significant for traumatic findings as documented above, neck pain back pain hematoma over the coccyx/buttock and right thigh, right ankle pain Differential includes but is not limited to intracranial trauma intrathoracic trauma intra-abdominal trauma spine trauma extremity trauma. Patient was given Tylenol, morphine for symptomatic management and correction of underlying abnormalities. Workup initiated including emergent full trauma scans, trauma labs, radiographs of the affected extremities. At this time care handed off to oncoming physician. <Winsome Starr MD - Last Filed: 05/01/25 07:32> Vital Signs: 05/01/25 06:02 05/01/25 06:10 05/01/25 06:43 Temperature 98.7 F Temperature Source Oral Pulse Rate 64 Pulse Rate [Right] 71 Respiratory Rate 16 16 Blood Pressure 167/134 H Blood Pressure [Right Arm] 177/76 H Blood Pressure Mean [Right Arm] 109 02 Sat by Pulse Oximetry 100 100 99 Oxygen Delivery Method Room Air Room Air Lab Data Lab Results 05/01/25 06:00: WBC 11.7 H, RBC 4.11 L, Hgb 12.0 L, Hct 36.2 L, MCV 88.1, MCH 29.2, MCHC 33.1, RDW 13.7, Plt Count 283, MPV 9.4, Neut % (Auto) 59.4, Lymph % (Auto) 29.2, Rich % (Auto) 6.5, Eos % (Auto) 3.7, Baso % (Auto) 0.9, Neut # (Auto) 6.9, Lymph # (Auto) 3.4, Rich # (Auto) 0.8, Eos # (Auto) 0.4, Baso # (Auto) 0.1, Sodium 136, Potassium 3.7, Chloride 104, Carbon Dioxide 27, Anion Gap 8.7, BUN 9, Creatinine 0.70, Estimated Creat Clear 90, Estimated GFR 87, Est GFR ( Amer) 105, Glucose 106 H, Calcium 9.8, Total Bilirubin 1.0, AST 33, ALT 18, Alkaline Phosphatase 117, Total Protein 7.6, Albumin 4.6, Globulin 3.0, Albumin/Globulin Ratio 1.5 Orders (Tests/Meds): ED MEDICATIONS Discontinued Medications Generic Name Dose Route Start Last Admin Trade Name Freq PRN Reason Stop Dose Admin Acetaminophen 1,000 mg 05/01/25 05:55 05/01/25 06:41 Acetaminophen 500mg Tab PO 05/01/25 05:56 1,000 mg ONCE ONE Administration Iopamidol 80 ml 05/01/25 06:22 05/01/25 06:23 Iopamidol-370 (76%);100ml Bottle IV 05/01/25 06:23 80 ml ONCE ONE Administration Iopamidol 80 ml 05/01/25 06:26 05/01/25 06:27 Iopamidol-370 (76%);100ml Bottle IV 05/01/25 06:27 80 ml ONCE ONE Administration Morphine Sulfate 4 mg 05/01/25 05:55 05/01/25 06:40 Morphine 4mg/Ml Syringe IV 05/01/25 05:56 4 mg ONCE ONE Administration Sodium Chloride 50 ml 05/01/25 06:22 05/01/25 06:23 0.9 % Sodium Chloride 50 Ml Vial IV 05/01/25 06:23 50 ml ONCE ONE Administration Sodium Chloride 10 ml 05/01/25 06:22 05/01/25 06:23 Sodium Chloride 0.9% 10ml Syr (Rad Only) IV 05/01/25 06:23 10 ml ONCE ONE Administration Sodium Chloride 50 ml 05/01/25 06:26 05/01/25 06:26 0.9 % Sodium Chloride 50 Ml Vial IV 05/01/25 06:27 50 ml ONCE ONE Administration Sodium Chloride 10 ml 05/01/25 06:26 05/01/25 06:26 Sodium Chloride 0.9% 10ml Syr (Rad Only) IV 05/01/25 06:27 10 ml ONCE ONE Administration ORDERS Category Date Time Status CT angio abd/pel - TRAUMA Stat Cat Scan 05/01/25 05:[address] angio chest - dissection Stat Cat Scan 05/01/25 05:[address] angio head Stat Cat Scan 05/01/25 05:[address] angio neck Stat Cat Scan 05/01/25 05:[address] bony pelvis Stat Cat Scan 05/01/25 05:[address] cervical spine wo con Stat Cat Scan 05/01/25 05:[address] head/brain wo con Stat Cat Scan 05/01/25 05:[address] lumbar spine wo con Stat Cat Scan 05/01/25 05:[address] thoracic spine wo con Stat Cat Scan 05/01/25 05:55 Completed Ankle XR -Right minimum 3 Views [XR ankle RT min 3V] Exams 05/01/25 05:55 Completed Stat Foot XR right minimum 3 views [XR foot RT min 3V] Stat Exams 05/01/25 05:55 Completed Tibia/fibula XR right 2 views [XR tibia fibula RT 2V] Exams 05/01/25 05:55 Completed Stat CBC w/Auto Diff [Complete Blood Count Auto Diff] Stat Lab 05/01/25 06:00 Completed CMP [Comprehensive Metabolic Panel] Stat Lab 05/01/25 06:00 Completed HIV Combo Stat Lab 05/01/25 06:00 Received Hepatitis C Ab Qual. W/ RFX Stat Lab 05/01/25 06:00 Received INR [Prothrombin Time INR] Stat Lab 05/01/25 06:00 Received Medical Decision Narrative: 54-year-old female with history of coronary artery disease on Brilinta presents for fall with neck pain, back pain, right leg pain, hematomas. History was obtained via interactive discussion with patient, family, chart review. On arrival, patient is [afebrile, hemodynamically stable, satting appropriately, alert, oriented x4, GCS 15], moving all extremities spontaneously. Full physical exam performed and significant for traumatic findings as documented above, neck pain back pain hematoma over the coccyx/buttock and right thigh, right ankle pain Differential includes but is not limited to intracranial trauma intrathoracic trauma intra-abdominal trauma spine trauma extremity trauma. Patient was given Tylenol, morphine for symptomatic management and correction of underlying abnormalities. Workup initiated including emergent full trauma scans, trauma labs, radiographs of the affected extremities. At this time care handed off to oncoming physician. CTs and x-rays without actionable injury. We applied pressure and ice to posterior back and right thigh hematomas. Patient had improvement of symptoms ambulatory and agreeable to discharge with strict return precautions. Procedures <Andres Sousa MD - Last Filed: 05/01/25 06:54> Risk/Benefits of Procedure(s) Were Explained: Yes Critical Care <Andres Sousa MD - Last Filed: 05/01/25 06:54> Critical Care Time Critical Care Time: No
[2025-05-01] MEDS: MORPHINE 4MG/ML SYRINGE 4 MG IV (06:40)
--- NOTE | 2025-05-01 06:40 | PC.NURSE ---
PT transported back to room via stretcher by radiology staff.
[2025-05-01] MEDS: ACETAMINOPHEN 500MG TAB 1000 MG PO (06:41)
[2025-05-01 06:43] VITALS: BP 167/134; PULSE 64; RESP 16; O2SAT 99
--- NOTE | 2025-05-01 06:50 | PC.NURSE ---
VERONICA bandage applied to R hip/thigh r/t hematomia per provider.
[2025-05-01 07:35] VITALS: BP 179/82; PULSE 79; RESP 15; TEMP 36.7; O2SAT 98
[2025-05-01 08:01] LABS: INR 0.96 (0.9-1.1); Prothrombin Time 10.7 seconds (10.1-12.5)
[2025-05-01 10:38] LABS: Hepatitis C Ab Qual. W/ RFX NEGATIVE (Negative)
== END 2025-05-01 07:36 | disposition home or self-care (01) ==
PROVIDERS: Emergency Medicine; Emergency Provider Student in an Organized Health Care Education/Training Program; PCP Nurse Practitioner Family
DX: S70.11XA Contusion of right thigh, initial encounter (principal); S30.0XXA Contusion of lower back and pelvis, initial encounter; M25.552 Pain in left hip; M79.661 Pain in right lower leg; W10.8XXA Fall (on) (from) other stairs and steps, initial encounter
CPT/HCPCS: 70450; 70496; 70498; 71275; 72125; 72128; 72131; 72192; 73590; 73610; 73630; 74174; 80053; 85025; 85610; 86803; 87389; 96374; 99284; 99285; J2270; Q9967